=== PATIENT | female | born 1975 | race Hispanic/Latino ===

== ENCOUNTER 2020-12-01 17:18 | Emergency (ER) | payer OTHER ==
--- OUTSIDE RECORDS SUMMARY | 2020-12-01 17:21 | XMS REPORT | Continuity of Care Document ---
:1975 Author Organization [facility] t Address [address] [place] [address] Care Team Providers Name Role Phone Yonathan Ernandez Attending Clinician Problems This patient has no known problems. Allergies, Adverse Reactions, Alerts This patient has no known allergies or adverse reactions. Medications This patient has no known medications. Procedures This patient has no known procedures. Encounters Start End Encounter Admission Attending Care Care Encounter Source Date/Time Date/Time Type Type Clinicians Facility Department ID 2019-03-05 2019-03-05 Emergency DONNA Kelly [id number] 19:57:05 21:53:00 Rick Tomlinson [id number] [place] [id number] [facility] [id number] Results This patient has no known results.
[2020-12-01] MEDS ORDERED: MECLIZINE HCL 12.5 MG TAB ONE (19:14)
[2020-12-01 19:19] LABS: Absolute Lymphocytes (CBC) 3.5 K/uL (0.7-4.9); Basophils % 1.2 % (0-1.3); Hematocrit 41.9 % (36.0-45.0); Lymphocytes % 30.1 % (15.3-44.8); RBC Red Blood Cell Count 4.62 M/uL (3.86-4.86)
[2020-12-01 19:27] LABS: Protime INR 0.99
[2020-12-01 19:40] LABS: ALT/SGPT 53 U/L (12-78); AST/SGOT 22 U/L (15-37); Albumin 3.2 g/dL (3.4-5.0); Alkaline Phosphatase 84 U/L (45-117); BUN Blood Urea Nitrogen 11 mg/dL (7-18); Bicarbonate 26 mmol/L (21-32); Bilirubin Direct < 0.1 mg/dL (0-0.2); Bilirubin Total 0.2 mg/dL (0.2-1.0); Glucose Level 278 mg/dL (74-106); Magnesium 1.9 mg/dL (1.8-2.4); NT PRO-BNP 18 pg/mL (<125); Potassium 3.8 mmol/L (3.5-5.1); Sodium Level 138 mmol/L (136-145); Troponin (Emerg Dept Use Only) < 0.02 ng/mL (0.0-0.045)
--- NOTE | 2020-12-01 19:43 | RAD REPORT ---
EXAM DESCRIPTION: CT - Head Brain Wo Cont - 12/01/2020 7:25 pm CLINICAL HISTORY: Dizziness COMPARISON: 2013 TECHNIQUE: Computed axial tomography of the head was obtained. IV contrast was not requested. All CT scans are performed using dose optimization technique as appropriate and may include automated exposure control or mA/KV adjustment according to patient size. FINDINGS: An intracranial bleed is not seen . The ventricles are normal in caliber. No extra-axial fluid collection is noted. Fluid within the sinuses/ mastoids is not seen. IMPRESSION: No acute intracranial abnormality is seen. If patient's symptoms persist MRI of the bra in would be recommended.
--- NOTE | 2020-12-01 19:49 | RAD REPORT ---
EXAM DESCRIPTION: Tawana Angio12/01/2020 7:25 pm CLINICAL HISTORY: Dizziness COMPARISON: None TECHNIQUE: 50 cc Isovue 370 was administered intravenously. 3D MIP reconstruction performed All CT scans are performed using dose optimization technique as appropriate and may include automated exposure control or mA/KV adjustment according to patient size. FINDINGS: The common carotid, internal carotid and external carotid arteries bilaterally appear unre markable. Left vertebral artery is slightly more dominant than the right No significant stenosis noted. No aneurysm IMPRESSION: Unremarkable exam NASCET criteria used. Mild 0-49% stenosis Moderate 50-69% stenosis Severe 70-99% stenosis
--- NOTE | 2020-12-01 19:56 | RAD REPORT ---
EXAM DESCRIPTION: CTHead angio12/01/2020 7:25 pm CLINICAL HISTORY: Dizziness COMPARISON: None TECHNIQUE: CT angiogram of the head was obtained. 3D MIPS reconstruction performed. All CT scans are performed using dose optimization technique as appropriate and may include automated exposure control or mA/KV adjustment according to patient size. FINDINGS: The basilar, internal carotid, anterior cerebral, middle cerebral and posterior cerebral a rteries are normal caliber. An aneurysm is not seen. A significant stenosis is not noted. IMPRESSION: Unremarkable CT angiogram head.
--- NOTE | 2020-12-01 20:17 | RAD REPORT ---
EXAM DESCRIPTION: Pamela Single View12/01/2020 8:12 pm CLINICAL HISTORY: Dizziness COMPARISON: none FINDINGS: The lungs appear clear of acute infiltrate. The heart is normal size IMPRESSION: No acute abnormalities displayed
--- NOTE | 2020-12-01 20:39 | ER ---
Nurse's Notes [facility] Name: Lashaun King Age: 45 yrs Sex: Female : 1975 Arrival Date: 12/01/2020 Time: 17:22 Bed 2 Private MD: Diagnosis: Dizziness and giddiness Presentation: 12/01 17:59 Chief complaint: Pt's reports dizziness and feeling lightheaded with movement aa5 since yesterday. Pt denies nausea. Coronavirus screen: At this time, the client does not indicate any symptoms associated with coronavirus-19. Ebola Screen: Patient negative for fever greater than or equal to 101.5 degrees Fahrenheit, and additional compatible Ebola Virus Disease symptoms. Initial Sepsis Screen: Does the patient meet any 2 criteria? No. Patient's initial sepsis screen is negative. Does the patient have a suspected source of infection? No. Patient's initial sepsis screen is negative. Risk Assessment: Do you want to hurt yourself or someone else? Patient reports no desire to harm self or others. Onset of symptoms was November 2020. 17:59 Method Of Arrival: Ambulatory aa5 17:59 Acuity: SERA 3 aa5 Triage Assessment: 18:00 General: Appears in no apparent distress. comfortable, Behavior is cooperative, bp appropriate for age, anxious. Pain: Denies pain. EENT: No deficits noted. Neuro: Level of Consciousness is awake, alert, obeys commands, Oriented to Appropriate for age Reports dizziness. Cardiovascular: No deficits noted. Respiratory: No deficits noted. GI: No signs and/or symptoms were reported involving the gastrointestinal system. : No signs and/or symptoms were reported regarding the genitourinary system. Derm: No deficits noted. Musculoskeletal: No deficits noted. Historical: - Allergies: 18:01 NKA; aa5 - PMHx: 18:01 Diabetes - NIDDM; Hyperlipidemia; aa5 - PSHx: 18:01 ; Cholecystectomy; aa5 - Immunization history:: Adult Immunizations unknown. - Social history:: Smoking status: Patient denies any tobacco usage or history of. Screenin:00 Abuse screen: Denies threats or abuse. Denies injuries from another. Nutritional bp screening: No deficits noted. Tuberculosis screening: No symptoms or risk factors identified. Fall Risk None identified. Assessment: 18:00 General: SEE TRIAGE NOTE. bp 19:00 Reassessment: Patient appears in no apparent distress at this time. Patient and/or jb4 family updated on plan of care and expected duration. Pain level reassessed. Patient is alert, oriented x 3, equal unlabored respirations, skin warm/dry/pink. denies dizziness at this time Patient states feeling better. 20:30 Reassessment: Patient appears in no apparent distress at this time. Patient and/or jb4 family updated on plan of care and expected duration. Pain level reassessed. Patient is alert, oriented x 3, equal unlabored respirations, skin warm/dry/pink. Vital Signs: 17:59 BP 135 / 85; Pulse 96; Resp 16 S; Temp 97.5(TE); Pulse Ox 99% on R/A; Weight 64.41 kg aa5 (R); Height 4 ft. 8 in. (142.24 cm) (R); Pain 0/10; 19:30 BP 126 / 89; Pulse 84; Resp 16; Pulse Ox 96% on R/A; jb4 20:30 BP 131 / 89; Pulse 87; Resp 16; Pulse Ox 98% on R/A; jb4 17:59 Body Mass Index 31.84 (64.41 kg, 142.24 cm) aa5 ED Course: 17:22 Patient arrived in ED. ds1 17:59 Arm band placed on. aa5 18:00 Triage completed. aa5 18:00 Patient has correct armband on for positive identification. Bed in low position. Call bp light in reach. Side rails up X2. Adult w/ patient. 18:24 Hernandez Martinez PA is PHCP. [facility] 18:24 Alex Horner MD is Attending Physician. jmm 18:50 Adalberto Blackwell, TIFFANI is Primary Nurse. bp 18:56 Basic Metabolic Panel Sent. kg 18:56 CBC with Diff Sent. kg 18:56 Inserted saline lock: 20 gauge in left antecubital area, using aseptic technique. Blood bp collected. 19:25 CT Head Brain wo Cont In Process Unspecified. EDMS 19:25 CT Neck Angio In Process Unspecified. EDMS 19:25 CT Head Angio In Process Unspecified. EDMS 20:12 XRAY Chest (1 view) In Process Unspecified. EDMS 20:39 Virginia Fletcher MD is Referral Physician. [facility] 20:39 Ruddy Lozano MD is Referral Physician. [facility] 20:57 No provider procedures requiring assistance completed. IV discontinued, intact, jb4 bleeding controlled, No redness/swelling at site. Pressure dressing applied. Administered Medications: 18:55 Drug: Meclizine 25 mg Route: PO; kg Point of Care Testing: Blood Glucose: 18:04 Blood Glucose: 317 mg/dL; aa5 Ranges: Outcome: 20:39 Discharge ordered by MD. [facility] 20:57 Discharged to home ambulatory. jb4 20:57 Condition: stable 20:57 Discharge instructions given to patient, Instructed on discharge instructions, follow up and referral plans. medication usage, Demonstrated understanding of instructions, follow-up care, medications, Prescriptions given X 1. 20:57 Patient left the ED. jb4 Signatures: Dispatcher [employer] EDMS Hernandez Martinez PA PA [facility] Rena Milan ds1 Radha Booker RN RN aa5 Domo Kirkland RN RN jb4 Adalberto Blackwell, TIFFANI RN Danii Cox, TIFFANI RN kg
--- NOTE | 2020-12-01 20:39 | EDPHYS ---
Physician Documentation [facility] Name: Lashaun King Age: 45 yrs Sex: Female : 1975 Arrival Date: 12/01/2020 Time: 17:22 Bed 2 Private MD: VIOLETA Physician Alex Horner HPI: 12/01 18:16 This 45 yrs old Female presents to ER via Ambulatory with complaints of jmm Dizziness. 18:16 The patient presents with dizziness. Onset: The symptoms/episode began/occurred jmm acutely, 1 day(s) ago. Modifying factors: The symptoms are alleviated by closing eyes, holding head still, the symptoms are aggravated by movement of head, standing up, changing position. Associated signs and symptoms: Pertinent negatives: chest pain. The patient has not experienced similar symptoms in the past. Historical: - Allergies: 18:01 NKA; aa5 - PMHx: 18:01 Diabetes - NIDDM; Hyperlipidemia; aa5 - PSHx: 18:01 ; Cholecystectomy; aa5 - Immunization history:: Adult Immunizations unknown. - Social history:: Smoking status: Patient denies any tobacco usage or history of. ROS: 18:16 Constitutional: Negative for fever, chills, and weight loss, Cardiovascular: Negative jmm for chest pain, palpitations, and edema, Respiratory: Negative for shortness of breath, cough, wheezing, and pleuritic chest pain. 18:16 Neuro: Positive for dizziness. 18:16 All other systems are negative. Exam: 18:16 Constitutional: This is a well developed, well nourished patient who is awake, alert, jmm and in no acute distress. Head/Face: atraumatic. 18:16 ENT: Moist Mucus Membranes Neck: Trachea midline, Supple Chest/axilla: Normal chest wall appearance and motion. Cardiovascular: Regular rate and rhythm. No edema appreciated Respiratory: Normal respirations, no respiratory distress appreciated Abdomen/GI: Non distended, soft Back: Normal ROM Skin: General appearance color normal MS/ Extremity: Moves all extremities, no obvious deformities appreciated, no edema noted to the lower extremities 18:16 Eyes: Nystagmus: nystagmus with fast component noted. 18:16 Neuro: Orientation: is normal, Mentation: is normal, Memory: is normal, Cerebellar function: normal finger to nose testing, Gait: is steady. 18:16 Psych: Behavior/mood is pleasant, cooperative. Vital Signs: 17:59 BP 135 / 85; Pulse 96; Resp 16 S; Temp 97.5(TE); Pulse Ox 99% on R/A; Weight 64.41 kg aa5 (R); Height 4 ft. 8 in. (142.24 cm) (R); Pain 0/10; 19:30 BP 126 / 89; Pulse 84; Resp 16; Pulse Ox 96% on R/A; jb4 20:30 BP 131 / 89; Pulse 87; Resp 16; Pulse Ox 98% on R/A; jb4 17:59 Body Mass Index 31.84 (64.41 kg, 142.24 cm) aa5 MDM: 18:26 Patient medically screened. syl 20:38 Data reviewed: vital signs, nurses notes. Counseling: I had a detailed discussion with phil the patient and/or guardian regarding: the historical points, exam findings, and any diagnostic results supporting the discharge/admit diagnosis, lab results, radiology results, the need for outpatient follow up, to return to the emergency department if symptoms worsen or persist or if there are any questions or concerns that arise at home. ED course: Patient states feeling much better. I do not suspect central cause. Advised to follow up with neuro/ent for further evaluation. . 12/01 18:16 Order name: Glucose, Ancillary Testing; Complete Time: 18:27 [facility] 12/01 18:42 Order name: Basic Metabolic Panel [facility] 12/01 18:42 Order name: CBC with Diff [facility] 12/01 18:42 Order name: LFT's; Complete Time: 20:09 [facility] 12/01 18:42 Order name: Magnesium; Complete Time: 20:09 [facility] 12/01 18:42 Order name: NT PRO-BNP; Complete Time: 20:09 [facility] 12/01 18:42 Order name: PT-INR; Complete Time: 19:32 [facility] 12/01 18:42 Order name: Troponin (emerg Dept Use Only); Complete Time: 20:09 [facility] 12/01 18:42 Order name: XRAY Chest (1 view); Complete Time: 20:25 [facility] 12/01 18:42 Order name: CT Head Brain wo Cont; Complete Time: 20:09 [facility] 06/06 18:42 Order name: CT Neck Angio; Complete Time: 20:09 [facility] 12/01 18:42 Order name: Basic Metabolic Panel; Complete Time: 20:09 [facility] 12/01 18:42 Order name: CBC with Automated Diff; Complete Time: 19:32 [facility] 12/01 20:54 Order name: CREATININE WHOLE BLOOD [facility] 12/01 18:42 Order name: EKG; Complete Time: 18:42 [facility] 12/01 18:42 Order name: Cardiac monitoring; Complete Time: 18:55 [facility] 12/01 18:42 Order name: EKG - Nurse/Tech; Complete Time: 18:55 [facility] 12/01 18:42 Order name: IV Saline Lock; Complete Time: 18:55 [facility] 12/01 18:42 Order name: Labs collected and sent; Complete Time: 18:55 [facility] 12/01 18:42 Order name: O2 Per Protocol; Complete Time: 18:56 [facility] 12/01 18:42 Order name: O2 Sat Monitoring; Complete Time: 18:56 [facility] 12/01 18:42 Order name: CT Head Angio; Complete Time: 20:09 [facility] Administered Medications: 18:55 Drug: Meclizine 25 mg Route: PO; kg Point of Care Testing: Blood Glucose: 18:04 Blood Glucose: 317 mg/dL; aa5 Ranges: Critical Glucose Levels:Adult <50 mg/dl or >400 mg/dl <40 mg/dl or >180 mg/dl Disposition: 12/01/20 20:39 Discharged to Home. Impression: Dizziness and giddiness. - Condition is Stable. - Discharge Instructions: Benign Positional Vertigo, Dizziness. - Prescriptions for Meclizine 25 mg Oral Tablet - take 1 tablet by ORAL route every 8 hours As needed; 30 tablet. - Medication Reconciliation Form, Thank You Letter, Antibiotic Education, Prescription Opioid Use form. - Follow up: Virginia Fletcher MD; When: 2 - 3 days; Reason: Recheck today's complaints, Continuance of care, Re-evaluation by your physician. Follow up: Ruddy Lozano MD; When: 2 - 3 days; Reason: Recheck today's complaints, Continuance of care, Re-evaluation by your physician. Addendum: 12/03/2020 07:51 Co-signature as Attending Physician, Alex Horner MD I agree with the assessment and c peralta plan of care. Signatures: Dispatcher [employer] EDAlex Flores MD MD cha Mickail, Joel, PA PA jmm Calderon, Audri, RN RN aa5 Domo Kirkland, RN RN jb4 Danii Saldaña, TIFFANI RN kg Corrections: (The following items were deleted from the chart) 12/01 20:57 20:39 12/01/2020 20:39 Discharged to Home. Impression: Dizziness and giddiness. jb4 Condition is Stable. Forms are Medication Reconciliation Form, Thank You Letter, Antibiotic Education, Prescription Opioid Use. Follow up: Virginia Fletcher; When: 2 - 3 days; Reason: Recheck today's complaints, Continuance of care, Re-evaluation by your physician. Follow up: Ruddy Lozano; When: 2 - 3 days; Reason: Recheck today's complaints, Continuance of care, Re-evaluation by your physician. phil
[2020-12-01 21:02] VITALS: TEMP 97.5
[2020-12-01 21:05] VITALS: BP 131/89; O2SAT 98
== END 2020-12-01 20:57 | disposition home or self-care (01) ==
LOC: ER 17:18
DX: R42 Dizziness and giddiness (principal)
CPT/HCPCS: 93005; 85025; 80048; 36415; 83735; 85610; 82565; 82947; 80076; 84484; 83880; 70450; 70496; 70498; 71045; 99284; Q9967

== ENCOUNTER 2025-02-07 18:36 | Emergency (ER) | payer OTHER ==
--- OUTSIDE RECORDS SUMMARY | 2025-02-07 18:41 | XMS REPORT | Continuity of Care Document ---
Author Name Unknown Address [address] [facility] [address] [place] [address] [facility] Address [address] [facility] [address] [place] [address] Care Team Providers Care Network Operations Manager Name Role Phone TIMOTHY WOODARD JR Primary Care Physician SERENA Morales Attending Clinician SERENA Morales Attending Clinician Serena Morales MD Attending Clinician + [phone] JENELLE GUZMÁN Attending Clinician Unavailable MARIA EUGENIA PETERSEN Attending Clinician Unavailable MARIA EUGENIA PETERSEN Attending Clinician Unavailable Maria Eugenia Petersen DO Attending Clinician [phone] NELSY VILLAFUERTE Attending Clinician Unavailab NELSY Barragan Attending Clinician Unavailab Nelsy Barragan DO Attending Clinician [phone] RADIOLOGY Attending Clinician Unavailable Radiology Attending Clinician Unavailable Tylor PAL Attending Clinician Unavailable Tylro Brenner Attending Clinician [phone] Doctor Unassigned, [place] Attending Clinician Dmitriy Edmonds NP Attending Clinician [phone] DMITRIY GODOY Attending Clinician UnavailMELE Melendez Attending Clinician UnavailMele Matthews MD Attending Clinician [phone] PATRICK BELLAMY Attending Clinician Unavailable Patrick Bellamy MD Attending Clinician [phone] Ray NIXON, Carol Alvarez Attending Clinician Unavailab le Only, Ang Db Test Attending Clinician UnavailMckayla DUEÑAS, Rosario Attending Clinician [phone] ROSARIO HAMMER Attending Clinician UnavailDOMINIQUE Turner Attending Clinician Unavailable Dominique Fermin MD Attending Clinician [phone] Gramm LEANA, Gali A Attending Clinician [phone] Jennifer Bryant MA Attending Clinician Unavailabl e Rick Ernandez Attending Clinician [phone] SERENA GOLDSTEIN Admitting Clinician MARIA EUGENIA Blanco Admitting Clinician Unavailable NELSY VILLAFUERTE Admitting Clinician Unavailab TIMOTHY Tavares JR Admitting Clinician Unavailab MARIA EUGENIA Chavez Admitting Clinician Unavailable MELE LEON Admitting Clinician UnavailPATRICK Duran Admitting Clinician Unavailable Patrick Bellamy MD Admitting Clinician [phone] DOMINIQUE FERMIN Admitting Clinician Unavailable Payers Payer Name Policy Type Policy Number Effective Date Expirati on Date Source [facility] [id number] 2015 00:00:00 Problems Condition Name Condition Details Condition Category Status Onset Date Resolution Date Last Treatment Date Treating Clinician Comments Source Type II or unspecifie d type diabetes mellitus with ketoacidos is, uncontroll ed(250.12) Type II or unspecifie d type diabetes mellitus with ketoacidos is, uncontroll ed(250.12) Disease Active 09-08 00:00: 00 [facility] BMI 28.0-28.9, adult BMI 28.0-28.9, adult Disease Active 09-08 00:00: 00 [facility] Axillary lump, right Axillary lump, right Disease Resolve d 09-08 00:00: 00 2023-10-11 00:00:00 2023-10-11 14:50:53 [facility] Routine gynecologi poornima examinatio n Routine gynecologi poornima examinatio n Disease Resolve d 2021-1 2-14 00:00: 00 2023-10-11 00:00:00 2023-10-11 11:30:02 Overview: Formattin g of this note might be different from the original. Added automatic ally from request for surgery [id number] [facility] Allergies, Adverse Reactions, Alerts Allergy Name Allergy Type Status Severity Reaction(s) Onset Date Inactive Date Treating Clinician Comments Source NO KNOWN ALLERGIE S Drug Class Active [facility] Social History Social Habit Start Date Stop Date Quantity Comments Source ASSERTION Not [facility] Social function 2024-10-03 00:00:00 2024-10-03 00:00:00 [facility] Alcoholic beverage intake 2024-10-03 00:00:00 2024-10-03 00:00:00 Lifetime non-drinker (finding) [facility] Tobacco use and exposure 2023-10-11 00:00:00 2023-10-11 00:00:00 Smokeless tobacco non-user [facility] Alcohol intake 2023-10-11 00:00:00 2023-10-11 00:00:00 Lifetime non-drinker (finding) [facility] Exposure to SARS-CoV-2 (event) 2022-09-28 00:00:00 2022-10-08 17:15:00 Not sure [facility] Sex assigned at 1975 00:00:00 1975 00:00:00 [facility] Smoking Status Start Date Stop Date Source Never smoked tobacco [facility] Medications Ordered Medication Name Filled Medication Name Start Date Stop Date Current Medication? Ordering Clinician Indication Dosage Frequency Signature (SIG) Comments Components Source fluconazole (DIFLUCAN) 150 mg tablet 10-05 00:00: 00 Yes [id number] 150mg Take 1 tablet by mouth every other day. [facility] estradioL 0.06 mg/24 hr patch 10-03 00:00: 00 Yes [id number] 1{patch } Apply 1 Patch to skin weekly. [facility] progesteron e 100 mg capsule 10-03 00:00: 00 Yes [id number] 100mg Take 1 capsule by mouth daily. [facility] NaCl 0.9% (NS) bolus infusion 1,000 mL 03-19 11:00: 00 03-19 11:51 :00 No 1000mL at 999 mL/hr, 1,000 mL, IV Infusion, ONCE, 1 dose, On Wed03/19/24 at 0600, STAT [facility] proCHLORper azine (COMPAZINE) injection 10 mg 03-19 11:00: 00 03-19 10:16 :00 No 10mg 10 mg, Slow IV Push, ONCE, 1 dose, On Wed03/19/24 at 0600, [facility] diphenhydrA MINE (BENADRYL) injection 25 mg 03-19 11:00: 00 03-19 10:15 :00 No 25mg 25 mg, Slow IV Push, ONCE, 1 dose, On Wed03/19/24 at 0600, [facility] famotidine (PEPCID (PF)) injection 20 mg 03-17 15:15: 00 03-17 16:21 :00 No 20mg 20 mg, Slow IV Push, ONCE, 1 dose, On Wed03/17/24 at 1015, [facility] SUMAtriptan (IMITREX) injection 6 mg 03-17 15:15: 00 03-17 16:18 :00 No 6mg 6 mg, Subcutaneo us, ONCE, 1 dose, On Wed03/17/24 at 1015, [facility] insulin regular human (HUMULIN R) injection 12 Units 03-17 15:15: 00 03-17 14:30 :00 No 12U 12 Units, Slow IV Push, ONCE, 1 dose, On Wed03/17/24 at 1015, Routine, Indication for insulin: [facility] haloperidol lactate (HALDOL) injection 2.5 mg 03-17 13:45: 00 03-17 13:48 :00 No 2.5mg 2.5 mg, Intravenou s, ONCE, 1 dose, On Wed03/17/24 at 0845, STAT [facility] ketorolac (TORADOL) injection 30 mg 03-17 13:15: 00 03-17 12:21 :00 No 30mg 30 mg, Slow IV Push, ONCE, 1 dose, On Wed03/17/24 at 0815, Routine [facility] NaCl 0.9% (NS) bolus infusion 1,000 mL 03-17 13:15: 00 03-17 16:23 :00 No 1000mL at 999 mL/hr, 1,000 mL, IV Infusion, ONCE, 1 dose, On Wed03/17/24 at 0815, [facility] dexamethaso ne sod phos PF injection 10 mg 03-17 12:30: 00 03-17 12:25 :00 No 10mg 10 mg, Slow IV Push, ONCE, 1 dose, On Wed03/17/24 at 0730, 1 mL [facility] diphenhydrA MINE (BENADRYL) injection 25 mg 03-17 12:30: 00 03-17 12:24 :00 No 25mg 25 mg, Slow IV Push, ONCE, 1 dose, On Wed03/17/24 at 0730, STAT [facility] metoclopram dav HCl (REGLAN) injection 10 mg 03-17 12:30: 00 03-17 12:25 :00 No 10mg 10 mg, Slow IV Push, ONCE, 1 dose, On Wed03/17/24 at 0730, [facility] ondansetron 4 mg disintegrat ing tablet 03-17 00:00: 00 Yes [id number] 4mg Take 1 tablet by mouth every 8 (eight) hours as needed for Nausea and Vomiting (N/V). [facility] maalox:diph enhydrAMINE :lidocaine 2 % viscous 1:1:1 (FIRST-MOUT HWASH BLM) oral suspension 15 mL 2022-06 0 04:00: 00 04-17 02:52 :00 No 15mL 15 mL, Oral (Swish & Swallow), ONCE, 1 dose, On Wed04/16/23 at 2300, Routine [facility] famotidine (PEPCID AC) tablet 40 mg 2022-06 03:15: 00 04-17 03:07 :00 No 40mg 40 mg, Oral, ONCE, 1 dose, On Wed04/16/23 at 2215, [facility] famotidine (PEPCID) 40 mg tablet 2022-06 00:00: 00 Yes [id number] 40mg Take 1 tablet by mouth daily. [facility] ibuprofen 600 mg tablet 2022-06 0 00:00: 00 Yes [id number] 600mg Take 1 tablet by mouth every 6 (six) hours as needed for Pain (scale 4-6). [facility] naproxen sodium 550 mg tablet 10-08 00:00: 00 Yes [id number] 550mg Take 1 tablet by mouth 2 (two) times daily with meals. [facility] methylPREDN ISolone 4 mg tablets 10-08 00:00: 00 Yes [id number] Take by mouth SEE-INSTRU CTIONS. follow package directions [facility] methocarbam oL 500 mg tablet 10-08 00:00: 00 10-14 04:59 :00 No [id number] 500mg Take 1 tablet by mouth 3 (three) times daily for 5 days. [facility] OZEMPIC 2 mg/dose (8 mg/3 mL) PnIj 2-10 00:00: 00 Yes INJECT 2 MG SUBCUTANEO USLY WEEKLY [facility] iopamidol (ISOVUE 370-500 mL) injection 100 mL 2021-06 15:15: 00 05-03 15:30 :00 No [id number] 100mL 100 mL, Intravenou s, ONCE, 1 dose, On Wed05/03/22 at 0930, Routine [facility] FENTanyl PF (SUBLIMAZE (PF)) injection 50 mcg 2021-06 14:45: 05-03 14:06 :00 No 50ug 50 mcg, Slow IV Push, ONCE, 1 dose, On Wed05/03/22 at 0845, Routine [facility] dicyclomine (BENTYL) tablet 20 mg 2021-06 14:00: 00 05-03 14:10 :00 No 20mg 20 mg, Oral, ONCE, 1 dose, On Wed05/03/22 at 0800, [facility] ondansetron (ZOFRAN (PF)) injection 4 mg 2021-06 14:00: 00 05-03 14:08 :00 No 4mg 4 mg, Slow IV Push, ONCE, 1 dose, On 05/03/22 at 0800, [facility] NaCl 0.9% (NS) bolus infusion 1,000 mL 2021-06 14:00: 00 05-03 15:00 :00 No 1000mL at 999 mL/hr, 1,000 mL, IV Infusion, ONCE, 1 dose, On 05/03/22 at 0800, STAT [facility] ondansetron 4 mg disintegrat ing tablet 2021-06 00:00: 00 03-17 00:00 :00 No [id number] 4mg Take 1 tablet by mouth every 8 (eight) hours as needed for Nausea and Vomiting (N/V) for up to 15 doses. [facility] levoFLOXaci n (LEVAQUIN) 500 mg tablet 2021-06 00:00: 00 05-11 05:59 :00 No [id number] 500mg Take 1 tablet by mouth every 24 (twenty-fo ur) hours for 7 days. [facility] dicyclomine 20 mg tablet 2021-06 00:00: 00 05-09 05:59 :00 No [id number] 20mg Take 1 tablet by mouth 3 (three) times daily as needed for Abdominal pain for up to 5 days. [facility] metFORMIN 1,000 mg tablet 10-07 14:01: 49 Yes 1000mg Take 1 tablet by mouth 2 (two) times daily with meals. [facility] atorvastati n 20 mg tablet 12 14:01: 49 Yes 20mg Take 1 tablet by mouth at bedtime. [facility] ranitidine (ZANTAC) 150 mg tablet 03-05 00:00: 00 Yes [id number] 150mg Take 1 tablet by mouth 2 (two) times daily. Follow up with your MD for further evaluation and treatment. [facility] Immunizations Ordered Immunization Name Filled Immunization Name Date Status Comments Source SARS-COV-2 COVID-19 PFIZER VACCINE 2021-05-02 00:00:00 Completed [facility] SARS-COV-2 COVID-19 PFIZER VACCINE 2021-05-02 00:00:00 Completed [facility] SARS-COV-2 COVID-19 PFIZER VACCINE 2021-05-02 00:00:00 Completed [facility] SARS-COV-2 COVID-19 PFIZER VACCINE 2021-05-02 00:00:00 Completed [facility] SARS-COV-2 COVID-19 PFIZER VACCINE 2021-05-02 00:00:00 Completed [facility] SARS-COV-2 COVID-19 PFIZER VACCINE 2021-05-02 00:00:00 Completed [facility] SARS-COV-2 COVID-19 PFIZER VACCINE 2021-05-02 00:00:00 Completed [facility] SARS-COV-2 COVID-19 PFIZER VACCINE 2021-05-02 00:00:00 Completed [facility] Influenza Virus Vaccine Quad IM, Preserv and ABX Free 6 MO-64 YRS 2021-04-24 00:00:00 Completed [facility] Influenza Virus Vaccine Quad IM, Preserv and ABX Free 6 MO-64 YRS 2021-04-24 00:00:00 Completed [facility] Influenza Virus Vaccine Quad IM, Preserv and ABX Free 6 MO-64 YRS 2021-04-24 00:00:00 Completed [facility] Influenza Virus Vaccine Quad IM, Preserv and ABX Free 6 MO-64 YRS 2021-04-24 00:00:00 Completed [facility] Influenza Virus Vaccine Quad IM, Preserv and ABX Free 6 MO-64 YRS 2021-04-24 00:00:00 Completed [facility] Influenza Virus Vaccine Quad IM, Preserv and ABX Free 6 MO-64 YRS 2021-04-24 00:00:00 Completed [facility] Influenza Virus Vaccine Quad IM, Preserv and ABX Free 6 MO-64 YRS 2021-04-24 00:00:00 Completed [facility] Influenza Virus Vaccine Quad IM, Preserv and ABX Free 6 MO-64 YRS (FLUCELVAX) 2021-04-24 00:00:00 Completed [facility] SARS-COV-2 COVID-19 PFIZER VACCINE 2020-10-12 00:00:00 Completed [facility] SARS-COV-2 COVID-19 PFIZER VACCINE 2020-10-12 00:00:00 Completed [facility] SARS-COV-2 COVID-19 PFIZER VACCINE 2020-10-12 00:00:00 Completed [facility] SARS-COV-2 COVID-19 PFIZER VACCINE 2020-10-12 00:00:00 Completed [facility] SARS-COV-2 COVID-19 PFIZER VACCINE 2020-10-12 00:00:00 Completed [facility] SARS-COV-2 COVID-19 PFIZER VACCINE 2020-10-12 00:00:00 Completed [facility] SARS-COV-2 COVID-19 PFIZER VACCINE 2020-10-12 00:00:00 Completed [facility] SARS-COV-2 COVID-19 PFIZER VACCINE 2020-10-12 00:00:00 Completed [facility] SARS-COV-2 COVID-19 PFIZER VACCINE 2020-09-22 00:00:00 Completed [facility] SARS-COV-2 COVID-19 PFIZER VACCINE 2020-09-22 00:00:00 Completed [facility] SARS-COV-2 COVID-19 PFIZER VACCINE 2020-09-22 00:00:00 Completed [facility] SARS-COV-2 COVID-19 PFIZER VACCINE 2020-09-22 00:00:00 Completed [facility] SARS-COV-2 COVID-19 PFIZER VACCINE 2020-09-22 00:00:00 Completed [facility] SARS-COV-2 COVID-19 PFIZER VACCINE 2020-09-22 00:00:00 Completed [facility] SARS-COV-2 COVID-19 PFIZER VACCINE 2020-09-22 00:00:00 Completed [facility] SARS-COV-2 COVID-19 PFIZER VACCINE 2020-09-22 00:00:00 Completed [facility] SARS-COV-2 COVID-19 PFIZER VACCINE Unknown Completed [facility] Influenza Virus Vaccine Quad IM, Preserv and ABX Free 6 MO-64 YRS (FLUCELVAX) Unknown Completed [facility] SARS-COV-2 COVID-19 PFIZER VACCINE Unknown Completed [facility] Influenza Virus Vaccine Quad IM, Preserv and ABX Free 6 MO-64 YRS (FLUCELVAX) Unknown Completed [facility] SARS-COV-2 COVID-19 PFIZER VACCINE Unknown Completed [facility] Influenza Virus Vaccine Quad IM, Preserv and ABX Free 6 MO-64 YRS (FLUCELVAX) Unknown Completed [facility] Influenza Virus Vaccine Quad IM, Preserv and ABX Free 6 MO-64 YRS (FLUCELVAX) Unknown Completed [facility] SARS-COV-2 COVID-19 PFIZER VACCINE Unknown Completed [facility] Influenza Virus Vaccine Quad IM, Preserv and ABX Free 6 MO-64 YRS (FLUCELVAX) Unknown Completed [facility] SARS-COV-2 COVID-19 PFIZER VACCINE Unknown Completed [facility] SARS-COV-2 COVID-19 PFIZER VACCINE Unknown Completed [facility] Influenza Virus Vaccine Quad IM, Preserv and ABX Free 6 MO-64 YRS (FLUCELVAX) Unknown Completed [facility] SARS-COV-2 COVID-19 PFIZER VACCINE Unknown Completed [facility] Influenza Virus Vaccine Quad IM, Preserv and ABX Free 6 MO-64 YRS (FLUCELVAX) Unknown Completed [facility] Vital Signs Vital Name Observation Time Observation Value Comments S momo Systolic blood pressure 2024-10-03 20:48:00 146 mm[Hg] [facility] Diastolic blood pressure 2024-10-03 20:48:00 85 mm[Hg] [facility] Heart rate 2024-10-03 20:45:00 97 /min [facility] Respiratory rate 2024-10-03 20:45:00 18 /min [facility] Body height 2024-10-03 20:45:00 142.2 cm [facility] Body weight 2024-10-03 20:45:00 59.875 kg [facility] BMI 2024-10-03 20:45:00 29.59 kg/m2 [facility] Systolic blood pressure 2024-03-19 11:00:00 133 mm[Hg] [facility] Diastolic blood pressure 2024-03-19 11:00:00 77 mm[Hg] [facility] Heart rate 2024-03-19 11:00:00 96 /min [facility] Body temperature 2024-03-19 11:00:00 36.89 Freida [facility] Respiratory rate 2024-03-19 11:00:00 23 /min [facility] Oxygen saturation in Arterial blood by Pulse oximetry 2024-03-19 11:00:00 94 /min [facility] Body height 2024-03-19 09:57:00 142.2 cm [facility] Body weight 2024-03-19 09:57:00 56.7 kg [facility] BMI 2024-03-19 09:57:00 28.02 kg/m2 [facility] Systolic blood pressure 2024-03-17 17:00:00 157 mm[Hg] [facility] Diastolic blood pressure 2024-03-17 17:00:00 93 mm[Hg] [facility] Heart rate 2024-03-17 17:00:00 113 /min [facility] Body temperature 2024-03-17 17:00:00 37.28 Freida [facility] Respiratory rate 2024-03-17 17:00:00 25 /min [facility] Oxygen saturation in Arterial blood by Pulse oximetry 2024-03-17 17:00:00 93 /min [facility] Body height 2024-03-17 12:07:00 142.2 cm [facility] Body weight 2024-03-17 12:07:00 61.236 kg [facility] BMI 2024-03-17 12:07:00 30.27 kg/m2 [facility] Systolic blood pressure 2023-10-11 16:22:00 129 mm[Hg] [facility] Diastolic blood pressure 2023-10-11 16:22:00 84 mm[Hg] [facility] Heart rate 2023-10-11 16:22:00 89 /min [facility] Respiratory rate 2023-10-11 16:22:00 18 /min [facility] Body height 2023-10-11 16:22:00 142.2 cm [facility] Body weight 2023-10-11 16:22:00 58.06 kg [facility] BMI 2023-10-11 16:22:00 28.70 kg/m2 [facility] Systolic blood pressure 2023-04-17 03:07:07 149 mm[Hg] [facility] Diastolic blood pressure 2023-04-17 03:07:07 91 mm[Hg] [facility] Heart rate 2023-04-17 03:07:07 85 /min [facility] Body temperature 2023-04-17 03:07:07 36.56 Freida [facility] Respiratory rate 2023-04-17 03:07:07 16 /min [facility] Oxygen saturation in Arterial blood by Pulse oximetry 2023-04-17 03:07:07 98 /min [facility] Body height 2023-04-17 01:28:00 142.2 cm [facility] Body weight 2023-04-17 01:28:00 59.421 kg [facility] BMI 2023-04-17 01:28:00 29.37 kg/m2 [facility] Systolic blood pressure 2022-10-08 22:16:00 137 mm[Hg] [facility] Diastolic blood pressure 2022-10-08 22:16:00 89 mm[Hg] [facility] Heart rate 2022-10-08 22:16:00 101 /min [facility] Body temperature 2022-10-08 22:16:00 36.67 Freida [facility] Respiratory rate 2022-10-08 22:16:00 20 /min [facility] Body weight 2022-10-08 22:16:00 61.236 kg [facility] BMI 2022-10-08 22:16:00 28.22 kg/m2 [facility] Oxygen saturation in Arterial blood by Pulse oximetry 2022-10-08 22:16:00 100 /min [facility] Systolic blood pressure 2022-09-08 14:15:00 106 mm[Hg] [facility] Diastolic blood pressure 2022-09-08 14:15:00 71 mm[Hg] [facility] Heart rate 2022-09-08 14:15:00 85 /min [facility] Respiratory rate 2022-09-08 14:15:00 18 /min [facility] Body height 2022-09-08 14:15:00 147.3 cm [facility] Body weight 2022-09-08 14:15:00 62.143 kg [facility] BMI 2022-09-08 14:15:00 28.63 kg/m2 [facility] Systolic blood pressure 2022-05-03 16:53:00 100 mm[Hg] [facility] Diastolic blood pressure 2022-05-03 16:53:00 80 mm[Hg] [facility] Heart rate 2022-05-03 15:00:00 77 /min [facility] Oxygen saturation in Arterial blood by Pulse oximetry 2022-05-03 15:00:00 96 /min [facility] Respiratory rate 2022-05-03 14:00:00 17 /min [facility] Body temperature 2022-05-03 13:30:00 36.83 Freida [facility] Body height 2022-05-03 13:30:00 142.2 cm [facility] Body weight 2022-05-03 13:30:00 58.968 kg [facility] BMI 2022-05-03 13:30:00 29.15 kg/m2 [facility] Systolic blood pressure 2021-10-07 19:00:00 118 mm[Hg] [facility] Diastolic blood pressure 2021-10-07 19:00:00 81 mm[Hg] [facility] Heart rate 2021-10-07 19:00:00 94 /min [facility] Body temperature 2021-10-07 19:00:00 36.5 Freida [facility] Body height 2021-10-07 19:00:00 142.2 cm [facility] Body weight 2021-10-07 19:00:00 60.147 kg [facility] BMI 2021-10-07 19:00:00 29.73 kg/m2 [facility] Oxygen saturation in Arterial blood by Pulse oximetry 2021-10-07 19:00:00 97 /min [facility] Procedures Procedure Date / Time Performed Performing Clinician Source VBG+VCOOX+NA+K+GLU+CA2+ 2024-03-19 10:12:00 Lee Petersen [facility] LACTIC ACID WHOLE BLOOD 2024-03-19 10:12:00 Lee Petersen [facility] COMP. METABOLIC PANEL ([id number]) 2024-03-19 10:11:00 Singer [facility] CBC WITH DIFF 2024-03-19 10:11:00 [place] [facility] URINALYSIS 2024-03-19 10:11:00 [facility] POCT GLUCOSE (AUTOMATED) 2024-03-17 16:13:00 Nelsy Villafuerte [facility] POCT GLUCOSE (AUTOMATED) 2024-03-17 15:05:00 Nelsy Villafuerte [facility] CT HEAD WO CONTRAST 2024-03-17 13:43:22 Tamra Villafuerte ra [facility] COMP. METABOLIC PANEL ([id number]) 2024-03-17 13:05:00 Nelsy Villafuerte [facility] CBC WITH DIFF 2024-03-17 13:05:00 Nelsy Villafuerte [facility] POCT TEST 2023-10-11 00:00:00 Jenelle Guzmán [facility] ASSIGNMENT OF BENEFITS 2023-04-17 01:54:26 Docto r Unassigned, [place] [facility] RAPID STREP SCREEN FOR GROUP A 2023-04-17 01:34:00 Tylor Pal [facility] CONSENT/REFUSAL FOR DIAGNOSIS AND TREATMENT 2023-04-17 01:23:19 Doctor Unassigned, [place] [facility] REFERRAL- REQUEST/RESPONSE 2023-04-14 05:01:00 Doctor Unassigned, [place] [facility] AUTHORIZATION FOR RELEASE OF PHI 2022-10-27 05:01:00 Doctor Unassigned, [place] [facility] XR CHEST 1 VW 2022-10-08 23:06:37 Maria Eugenia Petersen [facility] CT TRAUMA HEAD WO CONTRAST 2022-10-08 22:55:00 Singer Maria Eugenia [facility] CT TRAUMA CERVICAL SPINE WO CONTRAST 2022-10-08 22:55:00 Singer Maria Eugenia [facility] CONSENT/REFUSAL FOR DIAGNOSIS AND TREATMENT 2022-10-08 22:06:06 Doctor Unassigned, [place] [facility] BI ULTRASOUND BREAST COMPLETE RIGHT 2022-09-08 21:27:00 Requisition, Paper [facility] BI DIAGNOSTIC TOMOSYNTHESIS BILATERAL 2022-09-08 20:59:16 Requisition, Paper [facility] NOTICE OF PRIVACY PRACTICES 2022-09-08 19:37:34 Doctor Unassigned, [place] [facility] CONSENT/REFUSAL FOR DIAGNOSIS AND TREATMENT 2022-09-08 19:37:02 Doctor Unassigned, [place] [facility] ASSIGNMENT OF BENEFITS 2022-09-08 19:36:45 Docto r Unassigned, [place] [facility] PATIENT FINANCIAL POLICY 2022-09-08 14:01:10 Doctor Unassigned, [place] [facility] CONSENT/REFUSAL FOR DIAGNOSIS AND TREATMENT 2022-09-08 14:00:50 Doctor Unassigned, [place] [facility] ASSIGNMENT OF BENEFITS 2022-09-08 14:00:28 Docto r Unassigned, [place] [facility] CT ABDOMEN PELVIS W CONTRAST 2022-05-03 15:24:05 Mele Leon [facility] URINALYSIS 2022-05-03 15:02:00 Mele Leon [facility] POCT TEST 2022-05-03 15:02:00 Azeem Leon [facility] LIPASE 2022-05-03 14:09:00 Mele Leon [facility] COMP. METABOLIC PANEL ([id number]) 2022-05-03 14:09:00 Mele Leon [facility] CBC WITH DIFF 2022-05-03 14:09:00 [facility] AND TREATMENT 2022-05-03 13:23:41 Doctor Unassigned, [place] [facility] Encounters Start Date/Time End Date/Time Encounter Type Admission Type Attending [facility] Facility Care Department Encounter ID Source 2024-11-03 14:50:20 2024-11-03 23:59:00 Outpatient R SERENA SANDOVAL SERENA [facility] [id number] [facility] 2024-11-03 14:50:20 2024-11-03 23:59:00 Hospital Encounter Serena Sandoval [facility] 1.2.840.114 350.1.13.10 4.2.7.2.686 [id number] 800 [id number] [facility] 2024-11-02 16:00:00 2024-11-02 16:00:00 Outpatient R SERENA SANDOVAL S SERENA [facility] [id number] [facility] 2024-10-30 00:00:00 2024-10-30 00:00:00 Outpatient R SERENA SANDOVAL MARISOL [facility] [id number] [facility] 2024-10-27 00:00:00 2024-10-27 10:07:41 Refill Padilla-Tracey s, [facility] PRIMARY [facility] SPECIALTY CARE 1.840.114 350.1.13.10 4.2.7.2.686 [id number] [facility] 2024-10-05 00:00:00 2024-10-05 07:52:44 Case Management Shyla beltran [facility] 1.840.114 350.1.13.10 4.2.7.2.686 [id number] [facility] 2024-10-03 15:15:00 2024-10-03 16:11:15 Outpatient R SERENA SANDOVAL [facility] [id number] [facility] 2024-10-03 15:15:00 2024-10-03 16:11:15 Office Visit Shyla beltran [facility] 1..114 350.1.13.10 4.2.7.2.686 [id number] [facility] 2024-04-17 16:30:00 2024-04-17 16:30:00 Outpatient R JENELLE GUZMÁN [facility] [id number] [facility] 2024-03-19 05:00:00 2024-03-19 06:55:00 Emergency MARIA EUGENIA WARREN PHILLIP [facility] ERT [id number] [facility] 2024-03-19 05:00:00 2024-03-19 06:55:00 Emergency Maria Eugenia Petersen [facility] 1.840.114 350.1.13.10 4.2.7.2.686 [id number] [facility] 2024-03-17 07:08:00 2024-03-17 12:53:00 Emergency X NELSY VILLAFUERTE SANDRA [facility] ERT [id number] [facility] 2024-03-17 07:08:00 2024-03-17 12:53:00 Emergency Nelsy Villafuerte [facility] 1.2.840.114 350.1.13.10 4.2.7.2.686 [id number] [facility] 2023-10-18 15:02:13 2023-10-18 23:59:00 Outpatient R RADIOLOGY [facility] [id number] [facility] 2023-10-18 15:00:00 2023-10-18 23:59:00 Hospital Encounter Radiology [facility] 1.2.840.114 350.1.13.10 4.2.7.2.686 [id number] [facility] 2023-10-11 11:00:00 2023-10-11 11:49:55 Outpatient R JENELLE GUZMÁN [facility] [id number] [facility] 2023-10-11 11:00:00 2023-10-11 11:49:55 Office Visit Jenelle Guzmán [facility] PRIMARY [facility] SPECIALTY CARE 1.2.840.114 350.1.13.10 4.2.7.2.686 [id number] [facility] 2023-10-11 00:00:00 2023-10-11 00:00:00 Letter (Out) Jenelle Guzmán [facility] 1.2.840.114 350.1.13.10 4.2.7.2.686 [id number] 134 [id number] [facility] 2023-04-16 20:31:00 2023-04-16 22:16:00 Emergency X Tylor PAL [facility] ERT [id number] [facility] 2023-04-16 20:31:00 2023-04-16 22:16:00 Emergency Tylor Pal [facility] 1.2.840.114 350.1.13.10 4.2.7.2.686 [id number] [id number] [facility] 2023-04-14 00:00:00 2023-04-14 00:00:00 Orders Only Doctor Unassigned, [place]xton [facility] 1.2.840.114 350.1.13.10 4.2.7.2.686 [id number] [id number] [facility] 2022-10-27 00:00:00 2022-10-27 00:00:00 Orders Only Doctor Unassigned, [place]xton [facility] 1.2.840.114 350.1.13.10 4.2.7.2.686 [id number] [facility] 2022-10-08 17:20:00 2022-10-08 18:44:00 Emergency X SINGER MARIA EUGENIA [facility] ERT [id number] [facility] 2022-10-08 17:20:00 2022-10-08 18:44:00 Emergency Maria Eugenia Petersen [facility] 1.2.840.114 350.1.13.10 4.2.7.2.686 [id number] [id number] [facility] 2022-09-08 14:38:24 2022-09-08 23:59:00 Hospital Encounter Radiology [facility] 1.2.840.114 350.1.13.10 4.2.7.2.686 [id number] [facility] 2022-09-08 14:37:49 2022-09-08 14:37:00 Outpatient R RADIOLOGY [facility] [id number] [facility] 2022-09-08 14:30:00 2022-09-08 14:37:00 Hospital Encounter Radiology [facility] 1.2.840.114 350.1.13.10 4.2.7.2.686 [id number] [facility] 2022-09-08 09:30:00 2022-09-08 09:31:42 Office Visit Dmitriy Godoy [facility] 1.114 350.1.13.10 4.2.7.2.686 [id number] [facility] 2022-05-03 07:32:00 2022-05-03 10:59:00 Emergency X AUTUMN MELE [facility] ERT [id number] [facility] 2022-05-03 07:32:00 2022-05-03 10:59:00 Emergency MaggiehuyMele A [facility] 1.2.114 350.1.13.10 4.2.7.2.686 [id number] [facility] 2021-10-07 13:00:00 2021-10-07 14:31:00 Outpatient R PATRICK BELLAMY [facility] [id number] [facility] 2021-10-07 13:00:00 2021-10-07 14:31:00 Office Visit Patrick Bellamy [facility] PROFESSIO COUNT INCLUDES THE [facility] 1..114 350.1.13.10 4.2.7.2.686 [id number] [facility] 2021-09-19 07:54:00 2021-09-19 10:38:00 Outpatient R PATRICK BELLAMY [facility] JUAN CARLOS [id number] [facility] 2021-09-19 07:54:00 2021-09-19 10:38:00 Hospital Encounter Patrick Bellamy [facility] [place] 1.2.114 350.1.13.10 4.2.7.2.686 [id number] [facility] 2021-09-19 09:23:00 2021-09-19 10:15:00 Surgery Patrick Bellamy [facility] [place] 1.2.114 350.1.13.10 4.2.7.2.686 [id number] [facility] 2021-09-19 00:00:00 2021-09-19 00:00:00 Orders Only Doctor Unassigned, [place] [facility] 1.2.840.114 350.1.13.10 4.2.7.2.686 [id number] [id number] [facility] 2021-09-18 00:00:00 2021-09-18 00:00:00 Telephone Patrick Bellamy [facility] 1.2.840.114 350.1.13.10 4.2.7.2.686 [id number] [facility] 2021-09-18 00:00:00 2021-09-18 00:00:00 Telephone Patrick Bellamy [facility] 1.2.840.114 350.1.13.10 4.2.7.2.686 [id number] [facility] 2021-09-18 00:00:00 2021-09-18 00:00:00 Refill Patrick Bellamy [facility] 1.2.840.114 350.1.13.10 4.2.7.2.686 [id number] [facility] 2021-09-17 15:00:00 2021-09-17 15:00:00 Outpatient R PATRICK BELLAMY [facility] [id number] [facility] 2021-07-07 00:00:00 2021-07-07 00:00:00 Letter (Out) Carol Bell [facility] 1.2840.114 350.1.13.10 4.2.7.2.686 [id number] [facility] 2021-07-05 20:15:00 2021-07-05 20:30:00 Laboratory Only Only, Ang Db Test Karen Hammertany [facility] 1.2.840.114 350.1.13.10 4.2.7.2.686 [id number] [facility] 2021-07-05 20:15:00 2021-07-05 17:59:04 Outpatient R KAREN HAMMERTANY [facility] [id number] [facility] 2021-07-03 10:56:50 2021-07-03 23:59:00 Outpatient R ZANDER DOMINIQUE [facility] [id number] [facility] 2021-07-03 10:56:50 2021-07-03 23:59:00 Hospital Encounter Dominique Fermin [facility] 1.84.114 350.1.13.10 4.2.7.2.686 [id number] [facility] 2021-06-10 00:00:00 2021-06-10 00:00:00 Prep For Surgery Win, Gali Mcmanus [facility] 1..840.114 350.1.13.10 4.2.7.2.686 [id number] [facility] 2021-06-03 15:00:00 2021-06-03 15:00:00 Outpatient R PATRICK BELLAMY [facility] [id number] [facility] 2021-06-03 14:24:36 2021-06-03 14:54:36 Office Visit Patrick Bellamy [facility] 1..840.114 350.1.13.10 4.2.7.2.686 [id number] [facility] 2021-06-03 00:00:00 2021-06-03 00:00:00 Letter (Out) Patrick Bellamy [facility] 1..840.114 350.1.13.10 4.2.7.2.686 [id number] [facility] 2021-06-03 00:00:00 2021-06-03 00:00:00 Letter (Out) Patrick Bellamy [facility] MANOLO AGUILAR COUNT INCLUDES THE [facility] 1.2840.114 350.1.13.10 4.2.7.2.686 [id number] [facility] 2021-06-03 00:00:00 2021-06-03 00:00:00 Orders Only Doctor Unassigned, [place]xton [facility] 1.84.114 350.1.13.10 4.2.7.2.686 [id number] [facility] 2021-06-02 00:00:00 2021-06-02 00:00:00 Outpatient R DOMINIQUE FERMIN [facility] [id number] [facility] 2021-05-19 00:00:00 2021-05-19 00:00:[address] [facility] 1.284.114 350.1.13.10 4.2.7.2.686 [id number] [facility] 2021-04-24 09:00:00 2021-04-24 10:00:18 Outpatient R DOMINIQUE FERMIN [facility] [id number] [facility] 2021-04-24 08:48:09 2021-04-24 10:00:18 Office Visit Dominique Fermin [facility] 1.284.114 350.1.13.10 4.2.7.2.686 [id number] [facility] 2021-04-24 09:00:00 2021-04-24 09:00:00 Outpatient R DOMINIQUE FERMIN [facility] [id number] [facility] 2021-04-24 00:00:00 2021-04-24 00:00:00 Orders Only Doctor Unassigned, [place] [facility] 1.2.840.114 350.1.13.10 4.2.7.2.686 [id number] [facility] 2021-04-17 00:00:00 2021-04-17 00:00:00 Pre Visit Outreach Jennifer Bryant 1.2.840.114 350.1.13.10 4.2.7.2.686 [id number] [facility] 2019-03-05 19:57:05 2019-03-05 21:53:00 [facility].2.[facility].114 350.1.13.10 4.2.7.2.686 [id number] 2019-03-05 19:57:05 2019-03-05 21:53:00 [facility] 1.2.840.114 350.1.13.10 4.2.7.2.686 [id number] [id number] [facility] Results Test Description Test Time Test Comments Results Result Co mments Source [facility] with [id number] 11:27:12* Test Item Value Reference Range Interpretation Comme nts WBC (test code = 6690-2) 12.50 4.30-11.10 H RBC (test code = 789-8) 5.46 3.93-5.25 H HGB (test code = 718-7) 17.5 g/dL 11.6-15.0 H HCT (test code = 4544-3) 49.2 % 35.7-45.2 H MCV (test code = 787-2) 90.1 fL 80.6-95.5 MCH (test code = 785-6) 32.1 pg 25.9-32.8 MCHC (test code = 786-4) 35.6 g/dL 31.6-35.1 H RDW-SD (test code = 92800-1) 38.0 fL 39.0-49.9 L RDW-CV (test code = 788-0) 11.5 % 12.0-15.5 L PLT (test code = 777-3) 322 166-358 MPV (test code = 89982-3) 11.3 fL 9.5-12.9 NRBC/100 WBC (test code = 2614471365) 0.0 0.0-10.0 NRBC x10^3 (test code = 0987454865) See_Comment [Automated messa ge] The system which generated this result transmitted reference range: 10*3/?L. The reference range was not used to interpret this result as normal/abnormal. GRAN MAT (NEUT) % (test code = 770-8) 70.6 % IMM GRAN % (test code = 4490612652) 0.50 % LYMPH % (test code = 736-9) 21.9 % MONO % (test code = 5905-5) 6.3 % EOS % (test code = 713-8) 0.3 % BASO % (test code = 706-2) 0.4 % GRAN MAT x10^3(ANC) (test code = 2521638297) 8.82 10*3/uL 1.88-7.09 H IMM GRAN x10^3 (test code = 9558585836) 0.06 10*3/uL 0.00-0.06 LYMPH x10^3 (test code = 731-0) 2.74 10*3/uL 1.32-3.29 MONO x10^3 (test code = 742-7) 0.79 10*3/uL 0.33-0.92 EOS x10^3 (test code = 711-2) 0.04 10*3/uL 0.03-0.39 BASO x10^3 (test code = 704-7) 0.05 10*3/uL 0.01-0.07 Lab Interpretation (test code = 70912-1) [facility] [id number] 10:19:52* Test Item Value Reference Range Interpretation Comme nts LACTIC ACID (test code = 2475018514) 1.34 mmol/L 0.50-2.20 Lab Interpretation (test cod e = 03875-9) [facility]NA+K+GLU+CA2+2024-03-19 10:19:52* Test Item Value Reference Range Interpretation Comme nts PH (test code = 4177436433) 7.49 7.32-7.42 H PCO2 LIN (test code = 3120202459) 29 41-51 L PO2 LIN (test code = 5927262354) 45 25-40 H HCO3 LIN (test code = 4482469855) 22 24-28 L AC VBE(BEAKER) (test code = 6611825500) -0.3 mEq/L THB LIN (test code = 2784432977) 17.1 g/dL 12.0-16.0 H %O2HB LIN (test code = 4125417611) 84.7 % 52.0-63.0 H %COHB LIN (test code = 5653141934) 0.4 % 0.0-1.5 %METHB LIN (test code = 0644904513) 0.3 % 0.4-1.5 L VOL%O2 LIN (test code = 7418176837) 20.3 % 6.0-12.0 H NA (test code = 2124193062) 135 mmol/L 135-145 K+ (test code = 5856643678) 3.9 mmol/L 3.5-5.0 AC CA IONZ (test code = 3978509446) 4.60 mg/dL 4.50-5.30 GLUCOSE (test code = 9735022847) 358 mg/dL 70-110 H Lab Interpretation (test cod e = 73567-6) Abnormal [facility] GLUCOSE (AUTOMATED)2024-03-17 16:15:20* Test Item Value Reference Range Interpretation Comme nts POCT GLU (test code = 7117464463) 310 mg/dL 70-110 H Lab Interpretation (test cod e = 33408-7) Abnormal [facility] GLUCOSE (AUTOMATED)2024-03-17 15:05:46* Test Item Value Reference Range Interpretation Comme nts POCT GLU (test code = 7355645643) 305 mg/dL 70-110 H Lab Interpretation (test cod e = 29600-2) Abnormal [facility] HEAD WO [id number] 13:54:54CT HEAD WO CONTRAST HISTORY: Headache, sudden, severe COMPARISON: CT head without contrast dated 10/08/2022. TECHNIQUE: Contiguous axial imaging to the base of skull was obtained with2.5 mm slices without intravenous contrast. 5 mm axial, coronal, andsagittal reformats were obtained. FINDINGS: The ventricles and cerebral sulci are normal in caliber and configuration.No hydrocephalus, midline shift, or pathological extra-axial fluidcollection is present. The basal cisterns are unremarkable. No acute intracranial hemorrhage or significant mass effect is visualized.No parenchymal attenuation abnormality is seen. The licona- white matterdifferentiation is preserved. The mastoid air cells and paranasal air sinuses are clear. The calvariumand central skull base are unremarkable. Mild intracranial atherosclerosis.[facility]. METABOLIC PANEL (46267)2024-03-17 13:49:41* Test Item Value Reference Range Interpretation Comme nts NA (test code = 8322922770) 133 mmol/L 135-145 L K (test code = 7337413561) 3.8 mmol/L 3.5-5.0 CL (test code = 7811230427) 92 mmol/L 98-108 L CO2 TOTAL (test code = 5249532242) 26 mmol/L 23-31 AGAP (test code = 7955835452) 15 2-16 BUN (test code = 6381313492) 16 mg/dL 7-23 GLUCOSE (test code = 3334796866) 475 mg/dL 70-110 HH CREATININE (test code = 2160-0) 0.44 mg/dL 0.50-1.04 L TOTAL BILI (test code = 5155963802) 0.9 mg/dL 0.1-1.1 CALCIUM (test code = 4117397429) 10.0 mg/dL 8.6-10.6 T PROTEIN (test code = 9489299397) 8.2 g/dL 6.3-8.2 ALBUMIN (test code = 6896253335) 4.8 g/dL 3.5-5.0 ALK PHOS (test code = 1122679105) 128 U/L 34-122 H ALTv (test code = 1742-6) 56 U/L 5-35 H AST(SGOT) (test code = 4201718708) 40 U/L 13-40 eGFR (test code = 19730-0) 118.0 mL/min/1.73m2 CKD-EPI eGFR (2020). Assuming creatinine has been stable day-to-day for at least three months, the eGFR indicates Category G1 (>= 90 mL/min/1.73 m2) Lab Interpretation (test code = 25136-7) Abnormal [facility] WITH [id number] 13:42:03* Test Item Value Reference Range Interpretation Comme nts WBC (test code = 6690-2) 15.94 4.30-11.10 H RBC (test code = 789-8) 5.30 3.93-5.25 H HGB (test code = 718-7) 16.7 g/dL 11.6-15.0 H HCT (test code = 4544-3) 47.1 % 35.7-45.2 H MCV (test code = 787-2) 88.9 fL 80.6-95.5 MCH (test code = 785-6) 31.5 pg 25.9-32.8 MCHC (test code = 786-4) 35.5 g/dL 31.6-35.1 H RDW-SD (test code = 85329-5) 36.1 fL 39.0-49.9 L RDW-CV (test code = 788-0) 11.4 % 12.0-15.5 L PLT (test code = 777-3) 306 166-358 MPV (test code = 77157-7) 11.8 fL 9.5-12.9 NRBC/100 WBC (test code = 5380072842) 0.0 0.0-10.0 NRBC x10^3 (test code = 5778923935) See_Comment [Automated message] The system which generated this result transmitted reference range: 10*3/?L. The reference range was not used to interpret this result as normal/abnormal. GRAN MAT (NEUT) % (test code = 770-8) 81.5 % IMM GRAN % (test code = 2438209465) 0.80 % LYMPH % (test code = 736-9) 12.8 % MONO % (test code = 5905-5) 4.3 % EOS % (test code = 713-8) 0.2 % BASO % (test code = 706-2) 0.4 % GRAN MAT x10^3(ANC) (test code = 7782544089) 12.99 10*3/uL 1.88-7.09 H IMM GRAN x10^3 (test code = 9138437825) 0.13 10*3/uL 0.00-0.06 H LYMPH x10^3 (test code = 731-0) 2.04 10*3/uL 1.32-3.29 MONO x10^3 (test code = 742-7) 0.68 10*3/uL 0.33-0.92 EOS x10^3 (test code = 711-2) 0.03 10*3/uL 0.03-0.39 BASO x10^3 (test code = 704-7) 0.07 10*3/uL 0.01-0.07 Lab Interpretation (test code = 44984-5) Abnormal [facility] [id number] 16:30:00* Test Item Value Reference Range Interpretation Comme nts POCT PREG (test code = 1605) Negative On board controls acceptable with C Line (test code = 3574) Yes POCT PREG LOT # (test code = 3575) POCT PREG TEST DATE ( test code = 3576) [facility] [id number] 16:30:00* Test Item Value Reference Range Interpretation Comme nts POCT PREG (test code = 1605) Negative On board controls acceptable with C Line (test code = 3574) Yes POCT PREG LOT # (test code = 3575) POCT PREG TEST DATE ( test code = 3576) [facility] [id number] 15:02:00* Test Item Value Reference Range Interpretation Comme nts POCT PREG (test code = 1605) negative On board controls acceptable with C Line (test code = 3574) present POCT PREG LOT # (test code = 3575) [id number] POCT PREG TEST DATE ( test code = 3576) 09/26/23 Lab Interpretation (test cod e = 37107-6) Normal [facility]. METABOLIC PANEL (29599)2022-05-03 14:41:30* Test Item Value Reference Range Interpretation Comme nts NA (test code = 9274142145) 136 mmol/L 135-145 K (test code = 0041345847) 4.6 mmol/L 3.5-5.0 CL (test code = 6218398697) 104 mmol/L 98-108 CO2 TOTAL (test code = 7720451047) 25 mmol/L 23-31 AGAP (test code = 6995846318) 2-16 BUN (test code = 9529950021) 11 mg/dL 7-23 GLUCOSE (test code = 9511514711) 164 mg/dL 70-110 H CREATININE (test code = 8539633093) 0.42 mg/dL 0.50-1.04 L TOTAL BILI (test code = 2922205589) 0.5 mg/dL 0.1-1.1 CALCIUM (test code = 1911302133) 8.9 mg/dL 8.6-10.6 T PROTEIN (test code = 2624931050) 6.8 g/dL 6.3-8.2 ALBUMIN (test code = 3971691612) 4.2 g/dL 3.5-5.0 ALK PHOS (test code = 3995137935) 100 U/L 34-122 ALTv (test code = 1742-6) 130 U/L 5-35 H AST(SGOT) (test code = 5710705035) 55 U/L 13-40 H eGFR (test code = 9004996297) mL/min/1.73m2 MARIANA (test code = MARIANA) Association of Glomerular Filtration Rate (GFR) and Staging of Kidney Disease* + --+ --+ ------+| GFR (mL/min/1.73 m2) ?| With Kidney Damage ?| ?Without Kidney Damage+ --------+ --------+ +| ?>90 ?| ?Stage one ?| ? Normal ?+ ---+ ---+ -------+| ?60-89 ?| ?Stage two ?| ? Decreased GFR ? + --+ --+ ------+| ?30-59 ?| ?Stage three ?| ? Stage three ? + --+ --+ ------+| ?15-29 ?| ?Stage four ? | ? Stage four ?+ ---+ ---+ -------+| ?<15 (or dialysis) ? ?| ?Stage five ? | ? Stage five ?+ ---+ ---+ -------+ *Each stage assumes the associated GFR level has been in effect for at least three months. ?Stages 1 to 5, with or without kidney disease, indicate chronic kidney disease. Notes: Determination of stages one and two (with eGFR >59mL/min/1.73 m2) requires estimation of kidney damage for at least three months as defined by structural or functional abnormalities of the kidney, manifested by either:Pathological abnormalities or Markers of kidney damage (including abnormalities in the composition of the blood or urine or abnormalities in imaging tests). Lab Interpretation (test code = 04006-7) [facility] 14:40:50* Test Item Value Reference Range Interpretation Comme nts LIPASE (test code = 9997308673) 129 U/L 0-220 Lab Interpretation (test cod e = 76155-8) Normal [facility] WITH [id number] 14:18:49* Test Item Value Reference Range Interpretation Comme nts WBC (test code = 6690-2) See_Comment [Automated Imperator] The system which generated this result transmitted reference range: 4.30 - 11.10 10*3/?L. The reference range was not used to interpret this result as normal/abnormal. RBC (test code = 789-8) See_Comment [[facility]] The system which generated this result transmitted reference range: 3.93 - 5.25 10*6/?L. The reference range was not used to interpret this result as normal/abnormal. HGB (test code = 718-7) 14.8 g/dL 11.6-15.0 HCT (test code = 4544-3) 42.6 % 35.7-45.2 MCV (test code = 787-2) 89.1 fL 80.6-95.5 MCH (test code = 785-6) 31.0 pg 25.9-32.8 MCHC (test code = 786-4) 34.7 g/dL 31.6-35.1 RDW-SD (test code = 50605-7) 39.3 fL 39.0-49.9 RDW-CV (test code = 788-0) 12.0 % 12.0-15.5 PLT (test code = 777-3) See_Comment [Automated messa ge] The system which generated this result transmitted reference range: 166 - 358 10*3/?L. The reference range was not used to interpret this result as normal/abnormal. MPV (test code = 41565-5) 10.6 fL 9.5-12.9 NRBC/100 WBC (test code = 0946560065) See_Comment [Automated me ssage] The system which generated this result transmitted reference range: 0.0 - 10.0 /100 WBCs. The reference range was not used to interpret this result as normal/abnormal. NRBC x10^3 (test code = 9465488846) See_Comment [Automated me ssage] The system which generated this result transmitted reference range: 10*3/?L. The reference range was not used to interpret this result as normal/abnormal. GRAN MAT (NEUT) % (test code = 770-8) 63.9 % IMM GRAN % (test code = 3318095120) 0.60 % LYMPH % (test code = 736-9) 27.1 % MONO % (test code = 5905-5) 6.8 % EOS % (test code = 713-8) 1.1 % BASO % (test code = 706-2) 0.5 % GRAN MAT x10^3(ANC) (test code = 7982029004) 5.65 10*3/uL 1.88-7.09 IMM GRAN x10^3 (test code = 9444300933) 0.05 10*3/uL 0.00-0.06 LYMPH x10^3 (test code = 731-0) 2.39 10*3/uL 1.32-3.29 MONO x10^3 (test code = 742-7) 0.60 10*3/uL 0.33-0.92 EOS x10^3 (test code = 711-2) 0.10 10*3/uL 0.03-0.39 BASO x10^3 (test code = 704-7) 0.04 10*3/uL 0.01-0.07 [facility] Notes Date/Time Note Provider Source 2024-03-19 06:52:59 Pt given printed and verbal discharge instructions regarding migraine Pt verbalized understanding of instructions, pt awake alert oriented, resp reg unlabored, skin w/d, color appropriate for race, moves all ext well,pt encouraged to follow up with pcp Advised to seek medical attention for new/prolonged/worsening of symptoms, No adverse reaction to meds given in ER noted upon discharge PIV d'cd, dressing to site, catheter in tact. Awake, alert oriented, resp reg unlabored, skin w/d, pt leaving amb with steady gait, in no apparent distress, T Hermes Melton RN [facility] 2024-03-19 06:43:25 Pt continues to refuse covid swab Pending sale to [facility] 2024-03-19 05:17:55 Pt refusing covid swab stating she is scared, pt is crying about swab. Pt encouraged to allow staff to do swab but refused. T [facility] 2024-03-19 04:52:36 Pt arrived ambulatory with complaints of headache since Wednesday and dry heaving. Pt was seen on Wednesday for same complaints. Pt not taking blood sugar meds or checking blood sugar at home d/t being sick. T Bety Ladd RN [facility] 2024-03-19 04:47:00 [facility] Emergency Department Note Patient Name: Lashaun King Date of : 1975 48 year old female Treatment Room: TX5/TX5 Primary Care Physician: Timothy Woodard Jr Patient Escorted by: Family [5] Mode of Arrival: Personal means [1] EMS Treatment Prior to ED Arrival: SOLAR FABRICATION TECHNICIAN treatment: None Travel and Exposure Screening: Symptoms Does patient have any of these symptoms?: (not recorded) Exposure Screening Has patient had contact with someone with a communicable disease in the last month?: (not recorded) Diseases exposed to:: (not recorded) Is Patient ?: (not recorded) Exposure Date: (not recorded) Chief Complaint: Chief Complaint Patient presents with Headache Vomiting History of Present Illness: Female with recurrent headache. Patient was seen evaluated for headache on Wednesday and had CT scan as well as labs performed. She is diabetic and noncompliant. States that she also has myalgias. No focal neurologic deficit. Headache is frontal. Consistent with previous headache. Denies cough or dysuria. Past Medical History/Immunizations: Past Medical History: Diagnosis Date DM (diabetes mellitus) HTN (hypertension) Hypercholesteremia Hyperlipidemia Tetanus received in last 5 years: Unknown Allergies: No Known Allergies Past Social History: Tobacco Use Never smoked or used smokeless tobacco. Vaping Use Never used Alcohol Use Never. Drug Use Never. Sexual Activity Sexually active; Partners: Male; Control/Protection: None. Past Surgical History: Past Surgical History: Procedure Laterality Date SECTION x 2 CHOLECYSTECTOMY COLONOSCOPY 2011 polyps removed COLONOSCOPY N/A 09/19/2021 Surgeon: Patrick Bellamy MD; Location: [facility] [place] Review of Systems: Review of Systems Constitutional: Negative for fever. Respiratory: Negative for shortness of breath. Cardiovascular: Negative for chest pain. Gastrointestinal: Negative for nausea and vomiting. Neurological: Positive for headaches. Negative for weakness and numbness. Physical Exam: ED Triage Vitals [03/19/24 0457] Weight 56.7 kg (125 lb) Actual or estimated Actual Height 1.422 m (4' 8") BP (!) 146/104 Pulse 114 Resp 20 Temp 36.8 ?C (98.2 ?F) Temp source Oral SpO2 98 % Measured on Room air Physical Exam Vitals and nursing note reviewed. Constitutional: General: She is not in acute distress. Appearance: She is well-developed. She is not diaphoretic. HENT: Head: Normocephalic and atraumatic. Right Ear: External ear normal. Left Ear: External ear normal. Nose: Nose normal. Eyes: General: No scleral icterus. Conjunctiva/sclera: Conjunctivae normal. Pupils: Pupils are equal, round, and reactive to light. Cardiovascular: Rate and Rhythm: Normal rate and regular rhythm. Heart sounds: Normal heart sounds. Pulmonary: Effort: Pulmonary effort is normal. Breath sounds: Normal breath sounds. Abdominal: General: Bowel sounds are normal. Palpations: Abdomen is soft. Tenderness: There is no abdominal tenderness. Musculoskeletal: General: Normal range of motion. Cervical back: Normal range of motion and neck supple. Skin: General: Skin is warm and dry. Neurological: General: No focal deficit present. Mental Status: She is alert and oriented to person, place, and time. Cranial Nerves: No cranial nerve deficit. Motor: No weakness. Deep Tendon Reflexes: Reflexes are normal and symmetric. Psychiatric: Behavior: Behavior normal. Thought Content: Thought content normal. Radiology: CT HEAD WO CONTRAST Preliminary Result EXAM: CT HEAD WO CONTRAST HISTORY: 48 years-old Female; Provided indication: Subarachnoid hemorrhage (SAH) . TECHNIQUE: Axial CT of the head was performed and reconstructed at 5 mm intervals. Coronal and sagittal reformatted images were generated. COMPARISON: CT head without contrast 03/17/2023 for FINDINGS: The ventricles and cerebral sulci are normal in caliber and configuration. No midline shift or pathological extra-axial fluid collection is present. The basal cisterns are unremarkable. No acute intracranial hemorrhage or significant mass effect is visualized. No parenchymal attenuation abnormality is seen. The licona-white matter differentiation is preserved. The mastoid air cells and visualized paranasal air sinuses are clear. The calvarium and central skull base are unremarkable. IMPRESSION No acute intracranial abnormality. Preliminary Report Dictated by Resident: Barbara Donnelly Lab Results: Lab Results CBC WITH DIFF - Abnormal Result Value Ref Range WBC 12.50 (*) 4.30 - 11.10 10*3/?L RBC 5.46 (*) 3.93 - 5.25 10*6/?L HGB 17.5 (*) 11.6 - 15.0 g/dL HCT 49.2 (*) 35.7 - 45.2 % MCV 90.1 80.6 - 95.5 fL MCH 32.1 25.9 - 32.8 pg MCHC 35.6 (*) 31.6 - 35.1 g/dL RDW-SD 38.0 (*) 39.0 - 49.9 fL RDW-CV 11.5 (*) 12.0 - 15.5 % PLT 322 166 - 358 10*3/?L MPV 11.3 9.5 - 12.9 fL NRBC/100 WBC 0.0 0.0 - 10.0 /100 WBCs NRBC x10 3 <0.01 10*3/?L GRAN MAT (NEUT) % 70.6 % IMM GRAN % 0.50 % LYMPH % 21.9 % MONO % 6.3 % EOS % 0.3 % BASO % 0.4 % GRAN MAT x10 3 (ANC) 8.82 (*) 1.88 - 7.09 10*3/uL IMM GRAN x10 3 0.06 0.00 - 0.06 10*3/uL LYMPH x10 3 2.74 1.32 - 3.29 10*3/uL MONO x10 3 0.79 0.33 - 0.92 10*3/uL EOS x10 3 0.04 0.03 - 0.39 10*3/uL BASO x10 3 0.05 0.01 - 0.07 10*3/uL COMP. METABOLIC PANEL (41658) - Abnormal NA 131 (*) 135 - 145 mmol/L K 4.2 3.5 - 5.0 mmol/L CL 98 98 - 108 mmol/L CO2 TOTAL 21 (*) 23 - 31 mmol/L AGAP 12 2 - 16 BUN 18 7 - 23 mg/dL GLUCOSE 363 (*) 70 - 110 mg/dL CREATININE 0.48 (*) 0.50 - 1.04 mg/dL TOTAL BILI 1.6 (*) 0.1 - 1.1 mg/dL CALCIUM 8.9 8.6 - 10.6 mg/dL T PROTEIN 8.3 (*) 6.3 - 8.2 g/dL ALBUMIN 4.5 3.5 - 5.0 g/dL ALK PHOS 90 34 - 122 U/L ALTv 41 (*) 5 - 35 U/L AST(SGOT) 34 13 - 40 U/L eGFR 115.6 mL/min/1.73m2 URINALYSIS - Abnormal APPEARANCE Slightly Cloudy (*) Clear COLOR Yellow Yellow PH 5.0 4.8 - 8.0 SP GRAVITY 1.048 (*) 1.003 - 1.030 GLU U QUAL 500 mg/dL (*) Normal BLOOD Negative Negative KETONES 80 mg/dL (*) Negative PROTEIN 500 mg/dL (*) Negative UROBILIN Normal Normal BILIRUBIN Negative Negative NITRITE Negative Negative LEUK VINOD Negative Negative RBC/HPF 1 0 - 3 HPF WBC/HPF 3 0 - 5 HPF BACTERIA Few (*) Negative MUCOUS Slight (*) Negative LPF SQ EPITH 15 HPF HYAL CAST 2 <=2 LPF VBG+VCOOX+NA+K+GLU+CA2+ - Abnormal PH 7.49 (*) 7.32 - 7.42 PCO2 LIN 29 (*) 41 - 51 mmHg PO2 LIN 45 (*) 25 - 40 mmHg HCO3 LIN 22 (*) 24 - 28 mEq/L AC VBE(BEAKER) -0.3 mEq/L THB LIN 17.1 (*) 12.0 - 16.0 g/dL %O2HB LIN 84.7 (*) 52.0 - 63.0 % %COHB LIN 0.4 0.0 - 1.5 % %METHB LIN 0.3 (*) 0.4 - 1.5 % VOL%O2 LIN 20.3 (*) 6.0 - 12.0 % NA 135 135 - 145 mmol/L K+ 3.9 3.5 - 5.0 mmol/L AC CA IONZ 4.60 4.50 - 5.30 mg/dL GLUCOSE 358 (*) 70 - 110 mg/dL LACTIC ACID WHOLE BLOOD - Normal LACTIC ACID 1.34 0.50 - 2.20 mmol/L INFLUENZA A/B RSV COVID NAAT EKG: If EKG completed, see Procedure Note. Orders and Treatments: Orders Placed This Encounter Procedures CT HEAD WO CONTRAST Cbc with Diff Comp. Metabolic Panel (59450) Lactic Acid Whole Blood Lactic Acid Whole Blood Urinalysis VBG+VCOOX+NA+K+GLU+CA2+ Influenza A B RSV COVID NAAT Orders Placed This Encounter Medications DISCONTD: NaCl 0.9% (NS) bolus infusion 1,701 mL DISCONTD: NaCl 0.9% (NS) bolus infusion 500 mL diphenhydrAMINE (BENADRYL) injection 25 mg proCHLORperazine (COMPAZINE) injection 10 mg NaCl 0.9% (NS) bolus infusion 1,000 mL First Provider Eval: ED Events None ED COURSE ED Course as of 03/19/24 0644 Sun Mar 19, 2024 0642 Patient refused covid test but on reevaluation patient feels better. No SAH on CT. [PS] ED Course User Index [PS] Maria Eugenia Petersen DO Diagnosis/Impression as of 03/19/24 0644 Other migraine without status migrainosus, intractable Procedures: Procedures MDM: Medical Decision Making Problems Addressed: Other migraine without status migrainosus, intractable: acute illness or injury Details: 48-year-old female with recurrent headache. CT again negative for SAH. Patient is noncompliant with her diabetic medications but not acidotic. Compazine and Benadryl given in the emergency department as well as fluids and patient's symptoms have improved. Patient stable for discharge. Follow-up with neurology for further evaluation and management. Return precautions given if symptoms worsen as documented in the discharge instructions. Amount and/or Complexity of Data Reviewed Labs: ordered. Radiology: ordered. Risk Prescription drug management. Flowsheet Documentation: Scoring Tools: No data recorded Disposition/Condition: ED Disposition ED Disposition Disch - Home Condition Stable Comment -- Discharge Medications: Patient's Medications START taking these medications No medications on file CONTINUE taking these medications which have NOT CHANGED ATORVASTATIN 20 MG TABLET Take 20 mg by mouth at bedtime. FAMOTIDINE (PEPCID) 40 MG TABLET Take 1 tablet by mouth daily. IBUPROFEN 600 MG TABLET Take 1 tablet by mouth every 6 (six) hours as needed for Pain (scale 4-6). METFORMIN 1,000 MG TABLET Take 1,000 mg by mouth 2 (two) times daily with meals. METHYLPREDNISOLONE 4 MG TABLETS Take by mouth SEE-INSTRUCTIONS. follow package directions NAPROXEN SODIUM 550 MG TABLET Take 1 tablet by mouth 2 (two) times daily with meals. ONDANSETRON 4 MG DISINTEGRATING TABLET Take 1 tablet by mouth every 8 (eight) hours as needed for Nausea and Vomiting (N/V). OZEMPIC 2 MG/DOSE (8 MG/3 ML) PNIJ INJECT 2 MG SUBCUTANEOUSLY WEEKLY RANITIDINE (ZANTAC) 150 MG TABLET Take 1 tablet by mouth 2 (two) times daily. Follow up with your MD for further evaluation and treatment. START taking Modified Medications as Prescribed No medications on file STOP taking these medications No medications on file Follow-up: Contact information for follow-up Naldo Robbins MD Specialty: PN-NEUROLOGY [facility] AND [address] [place] [address] [facility] Specialty: Emergency Medicine [address] [facility] [place] [id number] Instructions: If symptoms worsen as documented in the discharge Electronically signed by: Maria Eugenia Petersen DO 03/19/24 0645 [facility] 2024-03-17 12:00:00 Pt given printed and verbal discharge instructions regarding acute non intractable headache, and hyperglycemia, encouraged hydration. 1 Prescription sent with patient .Pt verbalized understanding of instructions, pt awake alert oriented, resp reg unlabored, skin w/d, color appropriate for race, moves all ext well,pt encouraged to follow up with pcp. Advised to seek medical attention for new/prolonged/worsening of symptoms. No adverse reaction to meds given in ER noted upon discharge. Awake, alert oriented, resp reg unlabored, skin w/d, pt leaving amb with steady gait, in no apparent distress, accompanied by spouse Amirah Weaver RN [facility] 2024-03-17 11:11:04 Received report from [facility] 2024-03-17 07:06:42 states: "She's been vomiting all night." Reports abdominal pain/ CUELLAR. Pmhx: DM, HLD, Alisha Douglas RN [facility] 2024-03-17 06:56:00 [facility] Emergency Department Note Patient Name: Lashaun King Date of : 1975 48 year old female Treatment Room: TX1/TX1 Primary Care Physician: Timothy Woodard Jr Patient Escorted by: Family [5] Mode of Arrival: Personal means [1] EMS Treatment Prior to ED Arrival: SOLAR FABRICATION TECHNICIAN treatment: None Travel and Exposure Screening: Symptoms Does patient have any of these symptoms?: (not recorded) Exposure Screening Has patient had contact with someone with a communicable disease in the last month?: (not recorded) Diseases exposed to:: (not recorded) Is Patient ?: (not recorded) Exposure Date: (not recorded) Chief Complaint: Chief Complaint Patient presents with Vomiting History of Present Illness: The patient presents from home for evaluation for frontal headache that started last night. No injury or trauma. The headache has been constant since then and is slowly getting worse. She reports the headache is worse with bright light and loud sounds. She tried some ibuprofen around 4 AM and it did not help. She also has nausea and vomiting. No blurry vision. No weakness to her arms or legs. She denies any previous history of headaches like this. She does have a history of diabetes, high blood pressure and high cholesterol. Here for evaluation. Past Medical History/Immunizations: Past Medical History: Diagnosis Date DM (diabetes mellitus) HTN (hypertension) Hypercholesteremia Hyperlipidemia Tetanus received in last 5 years: No Allergies: No Known Allergies Past Social History: Tobacco Use Never smoked or used smokeless tobacco. Vaping Use Never used Alcohol Use Never. Drug Use Never. Sexual Activity Sexually active; Partners: Male; Control/Protection: None. Past Surgical History: Past Surgical History: Procedure Laterality Date SECTION x 2 CHOLECYSTECTOMY COLONOSCOPY 2011 polyps removed COLONOSCOPY N/A 09/19/2021 Surgeon: Patrick Bellamy MD; Location: [facility] [place] Review of Systems: Review of Systems Constitutional: Negative for chills and fever. HENT: Negative for dental problem. Respiratory: Negative for cough and choking. Cardiovascular: Negative for chest pain. Gastrointestinal: Positive for nausea and vomiting. Negative for abdominal pain. Musculoskeletal: Negative for back pain. Skin: Negative for wound. Neurological: Positive for headaches. Psychiatric/Behavioral: Negative for agitation. Endocrine: Negative for goiter. Physical Exam: ED Triage Vitals [03/17/24 0707] Weight 61.2 kg (135 lb) Actual or estimated Estimated by patient/family report Height 1.422 m (4' 8") BP (!) 172/109 Pulse 112 Resp 22 Temp 37.3 ?C (99.1 ?F) Temp source Oral SpO2 94 % Measured on Room air Physical Exam Vitals and nursing note reviewed. Constitutional: Appearance: Normal appearance. She is normal weight. HENT: Head: Normocephalic and atraumatic. Neck: Comments: Supple, no meningismus Cardiovascular: Rate and Rhythm: Normal rate and regular rhythm. Pulmonary: Effort: Pulmonary effort is normal. No respiratory distress. Breath sounds: No stridor. No wheezing. Abdominal: General: There is no distension. Palpations: Abdomen is soft. There is no mass. Tenderness: There is no abdominal tenderness. There is no guarding. Hernia: No hernia is present. Musculoskeletal: General: Normal range of motion. Cervical back: Normal range of motion and neck supple. Skin: General: Skin is warm and dry. Neurological: General: No focal deficit present. Mental Status: She is alert and oriented to person, place, and time. Radiology: CT HEAD WO CONTRAST Final Result CT HEAD WO CONTRAST HISTORY: Headache, sudden, severe COMPARISON: CT head without contrast dated 10/08/2022. TECHNIQUE: Contiguous axial imaging to the base of skull was obtained with 2.5 mm slices without intravenous contrast. 5 mm axial, coronal, and sagittal reformats were obtained. FINDINGS: The ventricles and cerebral sulci are normal in caliber and configuration. No hydrocephalus, midline shift, or pathological extra-axial fluid collection is present. The basal cisterns are unremarkable. No acute intracranial hemorrhage or significant mass effect is visualized. No parenchymal attenuation abnormality is seen. The licona-white matter differentiation is preserved. The mastoid air cells and paranasal air sinuses are clear. The calvarium and central skull base are unremarkable. Mild intracranial atherosclerosis. IMPRESSION No acute intracranial mass effect or hemorrhage. Preliminary Report Dictated by Resident: Catrachito Lowe I, Jorge Foster MD., have reviewed this study and agree with the above report. Lab Results: Lab Results CBC WITH DIFF - Abnormal Result Value Ref Range WBC 15.94 (*) 4.30 - 11.10 10*3/?L RBC 5.30 (*) 3.93 - 5.25 10*6/?L HGB 16.7 (*) 11.6 - 15.0 g/dL HCT 47.1 (*) 35.7 - 45.2 % MCV 88.9 80.6 - 95.5 fL MCH 31.5 25.9 - 32.8 pg MCHC 35.5 (*) 31.6 - 35.1 g/dL RDW-SD 36.1 (*) 39.0 - 49.9 fL RDW-CV 11.4 (*) 12.0 - 15.5 % PLT 306 166 - 358 10*3/?L MPV 11.8 9.5 - 12.9 fL NRBC/100 WBC 0.0 0.0 - 10.0 /100 WBCs NRBC x10 3 <0.01 10*3/?L GRAN MAT (NEUT) % 81.5 % IMM GRAN % 0.80 % LYMPH % 12.8 % MONO % 4.3 % EOS % 0.2 % BASO % 0.4 % GRAN MAT x10 3 (ANC) 12.99 (*) 1.88 - 7.09 10*3/uL IMM GRAN x10 3 0.13 (*) 0.00 - 0.06 10*3/uL LYMPH x10 3 2.04 1.32 - 3.29 10*3/uL MONO x10 3 0.68 0.33 - 0.92 10*3/uL EOS x10 3 0.03 0.03 - 0.39 10*3/uL BASO x10 3 0.07 0.01 - 0.07 10*3/uL COMP. METABOLIC PANEL (45967) - Abnormal NA 133 (*) 135 - 145 mmol/L K 3.8 3.5 - 5.0 mmol/L CL 92 (*) 98 - 108 mmol/L CO2 TOTAL 26 23 - 31 mmol/L AGAP 15 2 - 16 BUN 16 7 - 23 mg/dL GLUCOSE 475 (*) 70 - 110 mg/dL CREATININE 0.44 (*) 0.50 - 1.04 mg/dL TOTAL BILI 0.9 0.1 - 1.1 mg/dL CALCIUM 10.0 8.6 - 10.6 mg/dL T PROTEIN 8.2 6.3 - 8.2 g/dL ALBUMIN 4.8 3.5 - 5.0 g/dL ALK PHOS 128 (*) 34 - 122 U/L ALTv 56 (*) 5 - 35 U/L AST(SGOT) 40 13 - 40 U/L eGFR 118.0 mL/min/1.73m2 POCT GLUCOSE (AUTOMATED) - Abnormal POCT GLU 305 (*) 70 - 110 mg/dL POCT GLUCOSE (AUTOMATED) - Abnormal POCT GLU 310 (*) 70 - 110 mg/dL EKG: If EKG completed, see Procedure Note. Orders and Treatments: Orders Placed This Encounter Procedures CT HEAD WO CONTRAST CBC WITH DIFF COMP. METABOLIC PANEL (89026) POCT GLUCOSE (AUTOMATED) POCT GLUCOSE (AUTOMATED) Orders Placed This Encounter Medications NaCl 0.9% (NS) bolus infusion 1,000 mL metoclopramide HCl (REGLAN) injection 10 mg diphenhydrAMINE (BENADRYL) injection 25 mg dexamethasone sod phos PF injection 10 mg ketorolac (TORADOL) injection 30 mg haloperidol lactate (HALDOL) injection 2.5 mg insulin regular human (HUMULIN R) injection 12 Units SUMAtriptan (IMITREX) injection 6 mg famotidine (PEPCID (PF)) injection 20 mg ondansetron 4 mg disintegrating tablet First Provider Eval: ED Events Date/Time Event User Comments 03/17/24 0701 Medical Screening Begins NELSY VILLAFUERTE DO -- 03/17/24 07 First Provider Evaluation NELSY VILLAFUERTE DO -- ED COURSE Diagnosis/Impression as of 03/17/24 1156 Acute nonintractable headache, unspecified headache type Hyperglycemia Procedures: Procedures MDM: Medical Decision Making The patient presents from home for evaluation for frontal headache that started yesterday evening. No injury or trauma. No fevers or chills. No neck pain or stiffness. She reports the headache is worse with bright lights and loud sounds. She also has nausea and vomiting with her headache. She tried some ibuprofen around 4 AM and reports it did not help. She also reports a history of high blood pressure, diabetes and high cholesterol. The patient was tachycardic here in the ER. Her neck is supple and without meningismus. She has no focal neurological deficit on examination. No concern for subarachnoid hemorrhage or bacterial meningitis based on her presentation. Suspect a migraine headache. She did have a normal CT of her head in September 2022. Will give pain medication here in the ER. Anticipate discharge home later. 1155 -the patient is doing well here in the ER. A CT of her head shows no acute intracranial abnormalities. Her laboratory studies show hyperglycemia but no evidence of DKA. She was given IV insulin here in the ER and her sugar did improve. Her headache resolved after the medications here in the ER as well as her nausea and vomiting. She was given a p.o. challenge and able to talk by mouth without difficulty. She remained stable here in the ER and is OK for dc home with pcp f/u. Problems Addressed: Acute nonintractable headache, unspecified headache type: acute illness or injury Hyperglycemia: acute illness or injury Amount and/or Complexity of Data Reviewed Labs: ordered. Decision-making details documented in ED Course. Radiology: ordered and independent interpretation performed. Decision-making details documented in ED Course. Risk OTC drugs. Prescription drug management. Flowsheet Documentation: Scoring Tools: No data recorded Disposition/Condition: ED Disposition ED Disposition Disch - Home Condition Stable Comment -- Discharge Medications: Patient's Medications START taking these medications ONDANSETRON 4 MG DISINTEGRATING TABLET Take 1 tablet by mouth every 8 (eight) hours as needed for Nausea and Vomiting (N/V). CONTINUE taking these medications which have NOT CHANGED ATORVASTATIN 20 MG TABLET Take 20 mg by mouth at bedtime. FAMOTIDINE (PEPCID) 40 MG TABLET Take 1 tablet by mouth daily. IBUPROFEN 600 MG TABLET Take 1 tablet by mouth every 6 (six) hours as needed for Pain (scale 4-6). METFORMIN 1,000 MG TABLET Take 1,000 mg by mouth 2 (two) times daily with meals. METHYLPREDNISOLONE 4 MG TABLETS Take by mouth SEE-INSTRUCTIONS. follow package directions NAPROXEN SODIUM 550 MG TABLET Take 1 tablet by mouth 2 (two) times daily with meals. OZEMPIC 2 MG/DOSE (8 MG/3 ML) PNIJ INJECT 2 MG SUBCUTANEOUSLY WEEKLY RANITIDINE (ZANTAC) 150 MG TABLET Take 1 tablet by mouth 2 (two) times daily. Follow up with your MD for further evaluation and treatment. START taking Modified Medications as Prescribed No medications on file STOP taking these medications ONDANSETRON 4 MG DISINTEGRATING TABLET Take 1 tablet by mouth every 8 (eight) hours as needed for Nausea and Vomiting (N/V) for up to 15 doses. Follow-up: Electronically signed by: Nelsy Villafuerte DO 03/17/24 1158 T [facility]
[2025-02-07] MEDS ORDERED: GABAPENTIN 100 MG CAP ONE (20:17)
[2025-02-07] MEDS ORDERED: IBUPROFEN 200 MG TAB PO ONE (20:17)
[2025-02-07] MEDS ORDERED: IBUPROFEN 400 MG TAB ONE (20:17)
--- NOTE | 2025-02-07 20:39 | RAD REPORT ---
EXAM: Foot Right 3 View HISTORY: PAIN COMPARISON: None FINDINGS: Bones: No acute fracture identified. Alignment:No significant malalignment. Degenerative changes:Calcaneal spurs. Other: n/a IMPRESSION: No acute osseous abnormality.
--- NOTE | 2025-02-07 20:54 | EDPHYS ---
Physician Documentation [facility] Name: Lashaun King Age: 49 yrs Sex: Female : 1975 Arrival Date: 02/07/2025 Time: 18:36 Bed 11 Private MD: ED Physician Adam Potter HPI: 02/07 18:55 This 49 yrs old Female presents to ER via Unassigned with complaints of Foot cp Pain - RT. 18:55 The patient presents with pain, that is acute. The complaints affect the lateral aspect cp of right foot and dorsum of right foot. Context: resulted from an unknown cause. Onset: The symptoms/episode began/occurred today, started about 4 hours ago. Associated signs and symptoms: The patient has no apparent associated signs or symptoms. 18:55 Patient reports PMHX significant for diabetes that is not well controlled. 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 - Infectious Disease History:: Denies. - Social history:: Smoking status: Patient denies any tobacco usage or history of. ROS: 19:00 Constitutional: Negative for body aches, chills, fever, cp 19:00 Neck: Negative for pain with movement, pain at rest, 19:00 Respiratory: Negative for cough, shortness of breath, 19:00 Abdomen/GI: Negative for abdominal pain, vomiting, diarrhea, constipation, 19:00 Back: Negative for pain at rest, pain with movement, 19:00 MS/extremity: Positive for pain, of the dorsum of right foot and lateral aspect of right foot, Negative for injury or acute deformity, decreased range of motion, paresthesias, 19:00 Skin: Negative for cellulitis, rash, 19:00 Neuro: Negative for altered mental status, 19:00 All other systems are negative, Exam: 19:05 Constitutional: The patient appears in no acute distress, alert, awake, non-toxic, well cp developed, well nourished, uncomfortable, 19:05 Head/Face: Normocephalic, atraumatic. cp 19:05 Cardiovascular: Rate: normal, Pulses: Pulses are 2+ in right dorsalis pedis artery. Edema: is not appreciated, JVD: is not appreciated, 19:05 Respiratory: the patient does not display signs of respiratory distress, Respirations: normal, no use of accessory muscles, no retractions, labored breathing, is not present, 19:05 Abdomen/GI: Inspection: abdomen appears normal, 19:05 Back: pain, is absent, ROM is normal, 19:05 Musculoskeletal/extremity: Extremities: noted in the right foot: tenderness dorsal and lateral side of foot, overlying skin warm and dry with no erythema, Vital Signs: 18:53 BP 161 / 94; Pulse 90; Resp 17; Temp 98.1; Pulse Ox 98% ; Weight 58.51 kg; Pain 9/10; dd2 20:57 BP 143 / 95; Pulse 79; Resp 97; Temp 98.4(O); Pulse Ox 97% on R/A; Weight 58.51 kg; tb4 Height 4 ft. 8 in. ; Pain 9/10; 20:57 Body Mass Index 28.92 (58.51 kg, 142.24 cm) tb4 18:53 Pain Scale: Adult dd2 20:57 Pain Scale: Adult tb4 MDM: 18:55 Medical Screening Exam initiated cp 19:00 Differential diagnosis: dislocation, closed fracture, contusion, cellulitis, cp tendonitis, gout, neuropathy. 20:53 Data reviewed: vital signs, nurses notes, radiologic studies, plain films, and as a cp result, I will discharge patient. 02/07 18:41 Order name: Foot Right 3 View XRAY; Complete Time: 20:48 ms3 Administered Medications: 20:41 Drug: Ibuprofen PO 600 mg PO once Route: PO; tb4 21:42 Follow up: Response: No adverse reaction; Pain is decreased tb4 20:41 Drug: Neurontin PO 300 mg PO once Route: PO; tb4 21:42 Follow up: Response: No adverse reaction; Pain is decreased tb4 Disposition: 18:59 I was immediately available on-site in the Emergency Department for consultation in the ms3 care of the patient. Disposition Summary: 02/07/25 20:53 Discharge Ordered Notes: Location: Home cp Problem: new cp Symptoms: have improved cp Condition: Stable cp Diagnosis - Pain in right foot cp - Diabetes mellitus due to underlying condition with diabetic neuropathy, unspecified cp Followup: cp - With: Bubba Gomez DPM - When: 5 - 6 days - Reason: pain continues Discharge Instructions: - Discharge Summary Sheet cp - Diabetic Neuropathy cp - Foot Pain cp Forms: - Medication Reconciliation Form cp - Antibiotic Education cp - Prescription Opioid Use cp - Patient Portal Instructions cp - Leadership Thank You Letter cp Prescriptions: - Neurontin 300 mg Oral Capsule - take 1 capsule ORAL route At bedtime; 20 capsule; Refills: 0, Product Selection cp Permitted Signatures: Dispatcher [employer] EDMS Alex Singh PA PA cp Adam Potter, DO ms3 DEBBIE BELL RN RN dd2 Sierra Borges RN RN tb4 Corrections: (The following items were deleted from the chart) 18:42 18:42 Foot Right 3 View+RAD.RAD.BRZ ordered. [facility] 02/08 21:02/07 20:00 MS/extremity: Positive for pain, of the dorsum of right foot and lateral cp aspect of right foot, Negative for injury or acute deformity, decreased range of motion, paresthesias, cp 02/08 21:02/07 20:00 Back: Negative for pain at rest, pain with movement, cp cp 02/08 21:02/07 20:00 Neck: Negative for pain with movement, pain at rest, cp cp 02/08 21:02/07 20:00 Constitutional: Negative for body aches, chills, fever, cp cp 02/08 21:02/07 20:00 Respiratory: Negative for cough, shortness of breath, cp cp 02/08 21:02/07 20:00 Abdomen/GI: Negative for abdominal pain, vomiting, diarrhea, constipation, cp cp 02/08 21:02/07 20:00 Skin: Negative for cellulitis, rash, cp cp 02/08 21:02/07 20:00 Neuro: Negative for altered mental status, cp cp 02/08 21:02/07 20:00 All other systems are negative, cp cp
--- NOTE | 2025-02-07 20:54 | ER ---
Nurse's Notes [facility] Name: Lashaun King Age: 49 yrs Sex: Female : 1975 Arrival Date: 02/07/2025 Time: 18:36 Bed 11 Private MD: Diagnosis: Pain in right foot;Diabetes mellitus due to underlying condition with diabetic neuropathy, unspecified Presentation: 02/07 18:53 Chief complaint: Patient states: RT FOOT FOR ABOUT 4 HOURS. PT DENIES FALLING OR dd2 HITTING FOOT. Coronavirus screen: At this time, the client does not indicate any symptoms associated with coronavirus-19. Ebola Screen: No symptoms or risks identified at this time. Initial Sepsis Screen: Does the patient meet any 2 criteria? No. Patient's initial sepsis screen is negative. Does the patient have a suspected source of infection? No. Patient's initial sepsis screen is negative. Risk Assessment: Do you want to hurt yourself or someone else? Patient reports no desire to harm self or others. Onset of symptoms was February 07, 2025. 18:53 Method Of Arrival: Ambulatory dd2 18:53 Acuity: SERA 4 dd2 Triage Assessment: 18:55 General: Appears in no apparent distress. uncomfortable, Behavior is calm, cooperative, dd2 appropriate for age. Pain: Complains of pain in dorsum of right foot and lateral aspect of right foot Pain currently is 9 out of 10 on a pain scale. Musculoskeletal: Circulation, motion, and sensation intact. Range of motion: intact in all extremities, Tenderness present in dorsum of right foot and lateral aspect of right foot Reports pain in right foot. LAMINATOR: 21:42 Not tb4 Historical: - Allergies: 18:55 NKA; dd2 - PMHx: 18:55 Diabetes - NIDDM; Hyperlipidemia; dd2 - PSHx: 18:55 section; Cholecystectomy; dd2 - Immunization history:: Adult Immunizations unknown. - Infectious Disease History:: Denies. - Social history:: Smoking status: Patient denies any tobacco usage or history of. Screenin:57 [facility] ED Fall Risk Assessment (Adult) History of falling in the last 3 months, tb4 including since admission No falls in past 3 months (0 pts) Confusion or Disorientation No (0 pts) Intoxicated or Sedated No (0 pts) Impaired Gait No (0 pts) Mobility Assist Device Used No (0 pt) Altered Elimination No (0 pt) Score/Fall Risk Level 0 - 2 = Low Risk Oriented to surroundings, Maintained a safe environment. Abuse screen: Denies threats or abuse. Nutritional screening: No deficits noted. Tuberculosis screening: No symptoms or risk factors identified. Assessment: 20:57 Reassessment: See triage note. General: Appears uncomfortable, Behavior is calm, tb4 cooperative. Pain: Complains of pain in lateral side of right foot, lateral side of right heel and dorsum of right foot Pain does not radiate. Pain currently is 9 out of 10 on a pain scale. Quality of pain is described as aching, Pain began suddenly, 4 hours ago. Is continuous, Alleviated by nothing. Aggravated by increased activity, weight bearing. Neuro: Level of Consciousness is awake, alert, obeys commands, Oriented to person, place, time, situation, Moves all extremities. Full function Gait is steady, Speech is normal, Facial symmetry appears normal. Cardiovascular: No deficits noted. Respiratory: No deficits noted. Airway is patent Trachea midline Respiratory effort is even, unlabored, Respiratory pattern is regular, symmetrical. GI: No deficits noted. No signs and/or symptoms were reported involving the gastrointestinal system. : No deficits noted. No signs and/or symptoms were reported regarding the genitourinary system. Musculoskeletal: Circulation, motion, and sensation intact. Capillary refill < 3 seconds, in right toes. Range of motion: intact in all extremities. Vital Signs: 18:53 BP 161 / 94; Pulse 90; Resp 17; Temp 98.1; Pulse Ox 98% ; Weight 58.51 kg; Pain 9/10; dd2 20:57 BP 143 / 95; Pulse 79; Resp 97; Temp 98.4(O); Pulse Ox 97% on R/A; Weight 58.51 kg; tb4 Height 4 ft. 8 in. ; Pain 9/10; 20:57 Body Mass Index 28.92 (58.51 kg, 142.24 cm) tb4 18:53 Pain Scale: Adult dd2 20:57 Pain Scale: Adult tb4 ED Course: 18:39 Patient arrived in ED. cj3 18:44 Alex Singh PA is PHCP. cp 18:44 Adam Potter DO is Attending Physician. cp 18:55 Triage completed. dd2 18:55 Arm band placed on right wrist. dd2 19:54 Wilberto Macario MD is Attending Physician. cp 19:54 Adam Potter DO is Attending Physician. cp 20:28 Foot Right 3 View XRAY In Process Unspecified. EDMS 20:52 Bubba Gomez DPM is Referral Physician. cp 20:57 Patient has correct armband on for positive identification. Bed in low position. Call tb4 light in reach. Side rails up X 1. Side rails up X2. Adult w/ patient. Client placed on continuous cardiac and pulse oximetry monitoring. NIBP monitoring applied. Door closed. Lights dimmed. Warm blanket given. PO fluids given. 20:57 No provider procedures requiring assistance completed. X-ray(s) taken. Patient did not tb4 have IV access during this emergency room visit. 21:42 Provided Education on: To take medication as prescribed. tb4 Administered Medications: 20:41 Drug: Ibuprofen PO 600 mg PO once Route: PO; tb4 21:42 Follow up: Response: No adverse reaction; Pain is decreased tb4 20:41 Drug: Neurontin PO 300 mg PO once Route: PO; tb4 21:42 Follow up: Response: No adverse reaction; Pain is decreased tb4 Medication: 20:57 VIS not applicable for this client. tb4 Outcome: 20:53 Discharge ordered by MD. cp 21:41 Discharged to home ambulatory, with family, tb4 21:41 Condition: stable 21:41 Discharge instructions given to patient, family, Instructed on discharge instructions, follow up and referral plans. Demonstrated understanding of instructions, follow-up care, medications, Prescriptions given X 1, 21:43 Patient left the ED. tb4 Signatures: Dispatcher [employer] EDOK Alex Singh PA PA cp DAVIS, DIANA, RN RN dd2 Naomi Saenz cj3 Sierra Borges, RN RN tb4
[2025-02-07 22:59] VITALS: BP 143/95; TEMP 98.4; O2SAT 97
== END 2025-02-07 21:43 | disposition home or self-care (01) ==
LOC: ER 18:36
DX: M79.671 Pain in right foot (principal); E08.40 Diabetes mellitus due to underlying condition with diabetic neuropathy, unspecified
CPT/HCPCS: 99284